=== PATIENT | male | born 1945 | race Caucasian/White ===

== ENCOUNTER 2017-01-30 09:27 | Emergency (ER) | payer MEDICARE ==
[2017-01-30] MEDS ORDERED: ASPIRIN 81 MG TABLET, CHEWABLE PO ONE (09:38)
[2017-01-30] MEDS ORDERED: ALBUTEROL SULFATE 0.083% NEB 2.5 MG/3 ML AMPUL NEB ONE (09:54)
--- NOTE | 2017-01-30 10:00 | ER Document Report ---
ED Respiratory Problem - General Stated Complaint: SHORTNESS OF BREATH,WEAKNESS Time seen by provider: 09:55 Mode of Arrival: Medic Information source: Patient Notes: 72-year-old male with history of COPD, diabetes, coronary artery disease was sent from [facility] with thoughts of 86%, shortness of breath, and wheezing. He went to [facility] this morning because he has been feeling tired and weak with diarrhea. No complaints of chest pain or abdominal pain. No vomiting. No fever. EKG in the room shows sinus bradycardia No PACs. He has inspiratory next 20 wheezing bilateral with very distant heart sounds which I can't even hear through the wheezing. Oxygen at 2 L nasal cannula. EKG read by Dr. Hunter. TRAVEL OUTSIDE OF THE [place] IN LAST 30 DAYS: No - Related Data Allergies/Adverse Reactions: Penicillins Allergy (Verified 01/15/16 17:13) Past Medical History - General Information source: Patient - Social History Smoking Status: Current Every Day Smoker Drug Abuse: None Lives with: Family Family History: Reviewed & Not Pertinent - Past Medical History Cardiac Medical History: Reports: Hx Congestive Heart Failure, Hx Coronary Artery Disease, Hx Hypercholesterolemia, Hx Hypertension Pulmonary Medical History: Reports: Hx Asthma, Hx COPD Endocrine Medical History: Reports: Hx Diabetes Mellitus Type 1 Musculoskeltal Medical History: Reports Hx Arthritis Skin Medical History: Reports Hx Cellulitis Past Surgical History: Reports: Hx Coronary Artery Bypass Graft Review of Systems - Review of Systems Constitutional: See HPI EENT: No symptoms reported Cardiovascular: No symptoms reported Respiratory: See HPI Gastrointestinal: See HPI Genitourinary: No symptoms reported Male Genitourinary: No symptoms reported Musculoskeletal: No symptoms reported Skin: No symptoms reported Hematologic/Lymphatic: No symptoms reported Neurological/Psychological: No symptoms reported Physical Exam - Vital signs Vitals: Resp Pulse Ox 20 98 01/30/17 09:56 01/30/17 09:56 Interpretation: Normal - Notes Notes: Obese - General General appearance: Alert, Other - chronically ill Notes: obese - HEENT Head: Normocephalic, Atraumatic Eyes: Normal Conjunctiva: Normal Pupils: PERRL Mucous membranes: Normal Pharynx: Normal Neck: Supple - Respiratory Respiratory status: No respiratory distress Chest status: Nontender Breath sounds: Normal Chest palpation: Normal - Cardiovascular Rhythm: Regular, Bradycardia - very distant, heard heart sounds after wheezing resolved Heart sounds: Normal auscultation Murmur: No - Abdominal Inspection: Normal Distension: No distension Bowel sounds: Normal Tenderness: Nontender. No: Tender Organomegaly: No organomegaly - Back Back: Normal, Nontender. No: CVA tenderness - Extremities General upper extremity: Normal inspection, Nontender, Normal color, Normal ROM , Normal temperature General lower extremity: Normal inspection, Nontender, Normal color, Normal ROM , Normal temperature, Normal weight bearing. No: Juanjo's sign - Neurological Neuro grossly intact: Yes Cognition: Normal Orientation: AAOx4 Melody Coma Scale Eye Opening: Spontaneous Melody Coma Scale Verbal: Oriented Melody Coma Scale Motor: Obeys Commands Melody Coma Scale Total: 15 Speech: Normal Motor strength normal: LUE, RUE, LLE, RLE Sensory: Normal - Psychological Associated symptoms: Normal affect, Normal mood - Skin Skin Temperature: Warm Skin Moisture: Dry Skin Color: Normal Skin irregularity: Rash - lower anterior legs chronic, not hot, light pink left anterior tibial skin Course - Re-evaluation Re-evalutation: 01/30/17 11:33 Patient feels better there is faint expiratory wheeze on the right only heart sounds are normal he is still in the sinus bradycardia. Took the oxygen off to see what his pulse ox does with the 2 L he was 98%. 01/30/17 14:[address] ly, if pulse ox ok ambulating can go home. He evaluated the EKG. few wheezes scattered. Sinus bradycardia was present 201501/30/17 14:10 Creatinine is 1.5 which is actually lower than the last time he was here. ABG oxygen 70 with a pulse ox of 93%, not retaining CO2. ambulating pulse ox 94% with no SOB. 01/30/17 14:22 - Vital Signs Vital signs: Temp Pulse Resp BP Pulse Ox 97.9 F 10 L 124/74 93 01/30/17 13:01 01/30/17 13:01 01/30/17 13:01 01/30/17 13:42 - Laboratory Result Diagrams: 01/30/17 11:15 01/30/17 11:15 Laboratory results interpreted by me: 01/30/17 01/30/17 01/30/17 11:15 11:15 11:15 RBC 3.89 L Hgb 12.0 L Hct 35.6 L RDW 14.5 H Plt Count 147 L ABG pO2 ABG O2 Saturation BUN 47 H Creatinine 1.50 H Est GFR ( Amer) 55 L Est GFR (Non-Af Amer) 46 L Glucose 127 H Calcium 8.1 L Magnesium 2.5 H 01/30/17 12:40 RBC Hgb Hct RDW Plt Count ABG pO2 69.2 L ABG O2 Saturation 93.6 L BUN Creatinine Est GFR ( Amer) Est GFR (Non-Af Amer) Glucose Calcium Magnesium - EKG Interpretation by Me EKG shows normal: Sinus rhythm Rate: Bradycardia Discharge - Discharge Clinical Impression: tobacco dependency, bronchitis, diabetes, Renal insufficiency COPD (chronic obstructive pulmonary disease) Qualifiers: COPD type: COPD with acute exacerbation Qualified Code(s): J44.1 - Chronic obstructive pulmonary disease with (acute) exacerbation Condition: Stable Disposition: HOME, SELF-CARE Instructions: Bronchitis With Bronchospasm (Wheezing) ([facility]), Steroid Medication , Inhaled Bronchodilators ([facility]) Additional Instructions: stop smoking take the steroids use the nebulizdr use the meter dose inhaler return to the ER if worse Please complete the patient satisfaction survey if you get one, and return it.. If you do not receive a survey, then you can go to the [facility] website, [email or web address] and place your comments about your very good care. Thank you very much. It was a pleasure being your medical provider today. Prescriptions: Albuterol Sulfate [Ventolin 0.083% Neb 2.5 mg/3 mL Ampul] 2.5 mg NEB Q3HP PRN # 25 vial PRN Reason: Albuterol Sulfate [Proair HFA Inhalation Aerosol 8.5 gm MDI] 2 puff IH Q3HP PRN #1 [email or web address] PRN Reason: Prednisone [Deltasone 10 mg Tablet] 10 mg PO ASDIR PRN #21 tablet PRN Reason:
[2017-01-30] MEDS ORDERED: PREDNISONE 20 MG TABLET PO ONE (11:35)
[2017-01-30 11:59] LABS: ABSOLUTE EOSINOPHILS # (AUTO) 0.1 10^3/uL (0.0-0.6); ABSOLUTE LYMPHOCYTES (AUTO) 2.3 10^3/uL (0.5-4.7); ABSOLUTE MONOCYTES (AUTO) 0.7 10^3/uL (0.1-1.4); ABSOLUTE NEUT (AUTO) 3.4 10^3/uL (1.7-8.2); BASOPHILS % (AUTO) 0.5 % (0-2); EOSINOPHILS % (AUTO) 0.9 % (0-6); HEMATOCRIT 35.6 % (37.9-51.0); HGB HCT DIFFERENCE 0.4; LYMPHOCYTES % (AUTO) 35.4 % (13-45); MEAN CORPUSCULAR HEMOGLOBIN 30.9 pg (27.0-33.4); MEAN CORPUSCULAR HGB CONC 33.7 g/dL (32.0-36.0); MEAN CORPUSCULAR VOLUME 92 fl (80-97); MONOCYTES % (AUTO) 10.8 % (3-13); RED BLOOD COUNT 3.89 10^6/uL (4.35-5.55); RED CELL DISTRIBUTION WIDTH 14.5 % (11.5-14.0); SEGMENTED NEUTROPHILS % (AUTO) 52.4 % (42-78); WHITE BLOOD COUNT 6.4 10^3/uL (4.0-10.5)
[2017-01-30 12:27] LABS: ALANINE AMINOTRANSFERASE 27 U/L (21-72); ALBUMIN 3.7 g/dL (3.5-5.0); ALKALINE PHOSPHATASE 70 U/L (38-126); ANION GAP 11 (5-19); ASPARTATE AMINO TRANSFERASE 30 U/L (17-59); BILIRUBIN,DIRECT 0.4 mg/dL (0.0-0.4); BILIRUBIN,TOTAL 0.5 mg/dL (0.2-1.3); BLOOD UREA NITROGEN 47 mg/dL (7-20); CALCIUM 8.1 mg/dL (8.4-10.2); CARBON DIOXIDE 26 mmol/L (22-30); CHLORIDE 104 mmol/L (98-107); CREATINE KINASE 115 U/L (55-170); GLUCOSE 127 mg/dL (75-110); POTASSIUM 4.9 mmol/L (3.6-5.0); SODIUM 141.2 mmol/L (137-145)
[2017-01-30 12:49] LABS: CREATINE KINASE MB 1.33 ng/mL (<4.55)
[2017-01-30 12:50] LABS: TROPONIN I < 0.012 ng/mL
[2017-01-30 13:31] LABS: ARTERIAL BLOOD O2 SATURATION 93.6 % (94-98)
[2017-01-30 15:11] VITALS: BP 145/51
--- NOTE | 2017-01-30 20:57 | EKG REPORT ---
SEVERITY:- ABNORMAL ECG - SINUS BRADYCARDIA NONSPECIFIC INTRAVENTRICULAR CONDUCTION DELAY LOW VOLTAGE IN FRONTAL LEADS : Confirmed by: Meghna Pandya 30-Jan-2017 20:57:03
== END 2017-01-30 15:11 | disposition home or self-care (01) ==
LOC: EDBD 09:27 → ER 09:27
DX: J44.1 Chronic obstructive pulmonary disease with (acute) exacerbation (principal); J40 Bronchitis, not specified as acute or chronic; N28.9 Disorder of kidney and ureter, unspecified; E11.9 Type 2 diabetes mellitus without complications; R06.02 Shortness of breath; R53.1 Weakness; I25.10 Atherosclerotic heart disease of native coronary artery without angina pectoris; R19.7 Diarrhea, unspecified; F17.200 Nicotine dependence, unspecified, uncomplicated
CPT/HCPCS: 93005; 94640; 99285; 36415; 82553; 82803; 82550; 83735; 85025; 80053; 84484; 83880; 71010; 93010; 36600; A9270 ×3; J7512

== ENCOUNTER 2018-07-24 11:33 | Emergency (ER) | payer MEDICARE ==
[2018-07-24 11:46] VITALS: BP 131/54
--- NOTE | 2018-07-24 13:01 | ER Document Report ---
HPI - HPI Patient complains to provider of: Right shoulder pain Onset: Other - Few days ago Pain Level: 5 Context: 73-year-old male reached down to lift up a heavy piece of metal to help repair roof few days ago. After he did this the pain inside his right shoulder joint became increasingly worse to where he he cannot abduct it today due to pain. Associated Symptoms: None Exacerbated by: Movement Relieved by: Denies Similar symptoms previously: Yes - Previous shoulder surgery many years ago Recently seen / treated by doctor: No - ROS ROS below otherwise negative: Yes Systems Reviewed and Negative: Yes All other systems reviewed and negative Past Medical History - General Information source: Patient - Social History Smoking Status: Unknown if Ever Smoked Lives with: Family Family History: Reviewed & Not Pertinent - Past Medical History Cardiac Medical History: Reports: Hx Congestive Heart Failure, Hx Coronary Artery Disease, Hx Hypercholesterolemia, Hx Hypertension Pulmonary Medical History: Reports: Hx Asthma, Hx COPD Endocrine Medical History: Reports: Hx Diabetes Mellitus Type 1, Hx Diabetes Mellitus Type 2 Musculoskeletal Medical History: Reports Hx Arthritis Skin Medical History: Reports Hx Cellulitis Past Surgical History: Reports: Hx Cardiac Catheterization, Hx Cardiac Surgery - bypass, Hx Coronary Artery Bypass Graft - Immunizations Hx Diphtheria, Pertussis, Tetanus Vaccination: Yes Vertical Provider Document - CONSTITUTIONAL Agree With Documented VS: Yes General Appearance: No Apparent Distress - INFECTION CONTROL TRAVEL OUTSIDE OF THE [place] IN LAST 30 DAYS: No - NECK Neck: Supple - MUSCULOSKELETAL/EXTREMETIES Musculoskeletal/Extremeties: Tender - rght deltoid and top of right shoulder, increased pain with abduction - NEURO Level of Consciousness: Awake, Alert Motor/Sensory: No Motor Deficit, No Sensory Deficit Notes: 2+ radial pulse - DERM Integumentary: No Rash Course - Re-evaluation Re-evalutation: 07/24/18 X-rays report is negative per radiologist - Vital Signs Vital signs: Temp Pulse Resp BP Pulse Ox 98.2 F 52 L 16 131/54 H 93 07/24/18 11:44 07/24/18 11:44 07/24/18 11:44 07/24/18 11:44 07/24/18 11:44 Procedures - Immobilization Right Arm Time completed: 13:05 Pre-Proc Neuro Vasc Exam: Normal Immobilizer type: Sling Performed by: PCT Post-Proc Neuro Vasc Exam: Normal Alignment checked and good: Yes Discharge - Discharge Clinical Impression: Right shoulder muscle strain Rotator cuff (capsule) sprain Qualifiers: Encounter type: initial encounter Laterality: right Qualified Code(s): S43.421A - Sprain of right rotator cuff capsule, initial encounter Condition: Good Disposition: HOME, SELF-CARE Instructions: Exercise Program for the Shoulder ([facility]), Shoulder Injury ([facility]), Sling as Treatment ([facility]) Additional Instructions: Gentle range of motion of the right shoulder so you do not get frozen shoulder Sling for comfort See the orthopedic doctor for follow-up for possible further imaging Prescriptions: Hydrocodone Bit/Acetaminophen [Hydrocodon-Acetaminophen 5-325] 1 each PO Q4HP PRN #15 tablet PRN Reason: Referrals: MONTANA WITT MD [ACTIVE STAFF] - Follow up as needed
--- NOTE | 2018-07-24 13:03 | RADIOLOGY REPORT (SQ) ---
EXAM DESCRIPTION: SHOULDER RIGHT 2 OR MORE VIEWS COMPLETED DATE/TIME: 07/24/2018 12:45 pm REASON FOR STUDY: injury COMPARISON: None. NUMBER OF VIEWS: Three views. TECHNIQUE: Internal rotation, external rotation, and Y view images acquired of the right shoulder. LIMITATIONS: None. FINDINGS: MINERALIZATION: Osteopenia. BONES: No acute fracture or dislocation. No worrisome bone lesions. JOINTS: No dislocation. VISUALIZED LUNGS AND RIBS: No pneumothorax. No rib fracture. SOFT TISSUES: No radiopaque foreign body. OTHER: No other significant finding. IMPRESSION: NO RADIOGRAPHIC EVIDENCE OF ACUTE INJURY. TECHNICAL DOCUMENTATION: JOB ID: [id number] [place]-72 2010 [employer]- All Rights Reserved Reading location - IP/workstation name: [email or web address]
== END 2018-07-24 13:36 | disposition home or self-care (01) ==
LOC: ER 11:33
DX: S46.911A Strain of unspecified muscle, fascia and tendon at shoulder and upper arm level, right arm, initial encounter (principal); S43.421A Sprain of right rotator cuff capsule, initial encounter; X50.0XXA Overexertion from strenuous movement or load, initial encounter; Y93.H3 Activity, building and construction; I25.10 Atherosclerotic heart disease of native coronary artery without angina pectoris; Z95.1 Presence of aortocoronary bypass graft; Z98.890 Other specified postprocedural states
CPT/HCPCS: 99283

== ENCOUNTER 2019-09-26 23:33 | Inpatient (IN) | payer MEDICARE ==
--- NOTE | 2019-09-27 | ER Document Report ---
ED Medical Screen (RME) - General Stated Complaint: FEVER,CHILLS Time Seen by Provider: 09/26/19 23:55 Mode of Arrival: Medic Information source: Patient Notes: 74-year-old male with history of CAD COPD asthma diabetes presents to the emergency department via EMS for fever chills all day low blood pressure. Discussed symptoms with patient he reports he has been sick his whole life. Is supposed to use home oxygen but does not. Is reported that when EMS picked him up his O2 sat was in the 80s. They placed oxygen on him brought his oxygen up to 97%. Septic work-up ordered I have greeted and performed a rapid initial assessment of this patient. A comprehensive ED assessment and evaluation of the patient, analysis of test results and completion of the medical decision making process will be conducted by additional ED providers. Dictation of this chart was performed using voice recognition software; therefore, there may be some unintended grammatical errors. TRAVEL OUTSIDE OF THE [place] IN LAST 30 DAYS: No - Related Data Allergies/Adverse Reactions: Penicillins Allergy (Verified 07/24/18 11:33) Past Medical History - Past Medical History Cardiac Medical History: Reports: Hx Congestive Heart Failure, Hx Coronary Artery Disease, Hx Hypercholesterolemia, Hx Hypertension Pulmonary Medical History: Reports: Hx Asthma, Hx COPD Endocrine Medical History: Reports: Hx Diabetes Mellitus Type 1, Hx Diabetes Mellitus Type 2 Renal/ Medical History: Denies: Hx Peritoneal Dialysis Musculoskeltal Medical History: Reports Hx Arthritis Skin Medical History: Reports Hx Cellulitis Past Surgical History: Reports: Hx Cardiac Catheterization, Hx Cardiac Surgery - bypass, Hx Coronary Artery Bypass Graft - Immunizations Hx Diphtheria, Pertussis, Tetanus Vaccination: Yes
[2019-09-27 00:19] LABS: VENOUS BLOOD HCO3 29.6 mmol/L (20-32); VENOUS BLOOD PCO2 52.4 mmHg (35-63); VENOUS BLOOD PH 7.37 (7.30-7.42)
[2019-09-27] MEDS ORDERED: NORMAL SALINE 1000 ML 1,000 ML IV ONE ×3 (00:21→12:30)
[2019-09-27 00:22] LABS: ABSOLUTE EOSINOPHILS # (AUTO) 0.1 10^3/uL (0.0-0.6); ABSOLUTE LYMPHOCYTES (AUTO) 1.3 10^3/uL (0.5-4.7); ABSOLUTE MONOCYTES (AUTO) 0.8 10^3/uL (0.1-1.4); ABSOLUTE NEUT (AUTO) 11.8 10^3/uL (1.7-8.2); BASOPHILS % (AUTO) 0.2 % (0-2); EOSINOPHILS % (AUTO) 0.5 % (0-6); HEMATOCRIT 47.2 % (37.9-51.0); HEMOGLOBIN 15.6 g/dL (13.5-17.0); LYMPHOCYTES % (AUTO) 9.2 % (13-45); MEAN CORPUSCULAR HEMOGLOBIN 29.7 pg (27.0-33.4); MEAN CORPUSCULAR HGB CONC 33.1 g/dL (32.0-36.0); MEAN CORPUSCULAR VOLUME 90 fl (80-97); MONOCYTES % (AUTO) 5.6 % (3-13); PLATELET COUNT 202 10^3/uL (150-450); RED BLOOD COUNT 5.25 10^6/uL (4.35-5.55); RED CELL DISTRIBUTION WIDTH 14.6 % (11.5-14.0); SEGMENTED NEUTROPHILS % (AUTO) 84.5 % (42-78); TOTAL CELLS COUNTED % (AUTO) 100 %
[2019-09-27] MEDS ORDERED: CEFEPIME 2 GM/D5W RTU 2 GM/50 ML RTUPB IV ONE (00:22)
[2019-09-27] MEDS ORDERED: VANCOMYCIN HCL INJ 1000 MG VIAL IV ONE (00:23)
--- NOTE | 2019-09-27 00:29 | ER Document Report ---
ED Fever - General Chief Complaint: Fever Stated Complaint: FEVER,CHILLS Time Seen by Provider: 09/26/19 23:55 Mode of Arrival: Medic Notes: Patient is a 74-year-old male that comes emergency department for chief complai nt of feeling bad and low blood pressure. He was found to have a fever by EMS at 101.1, initial oxygen saturation was 84% on room air, initial blood pressure was 153/74. He was given 925 mg of Tylenol and placed on oxygen. He is supposed to be wearing oxygen at home, has a history of COPD and asthma, does not like wearing the oxygen at home. He also has a history of diabetes, CAD, CHF. He states other than feeling weak he does not have any symptoms including headache, sore throat, chest pain, abdominal pain, leg pain, difficulty breathing, cough. He states his influenza is up-to-date. TRAVEL OUTSIDE OF THE [place] IN LAST 30 DAYS: No - Related Data Allergies/Adverse Reactions: Penicillins Allergy (Verified 07/24/18 11:33) Past Medical History - General Information source: Patient - Social History Smoking Status: Former Smoker Frequency of alcohol use: None Drug Abuse: None Lives with: Family Family History: Reviewed & Not Pertinent Patient has suicidal ideation: No Patient has homicidal ideation: No - Past Medical History Cardiac Medical History: Reports: Hx Congestive Heart Failure, Hx Coronary Artery Disease, Hx Hypercholesterolemia, Hx Hypertension Pulmonary Medical History: Reports: Hx Asthma, Hx COPD Endocrine Medical History: Reports: Hx Diabetes Mellitus Type 2 Renal/ Medical History: Denies: Hx Peritoneal Dialysis Musculoskeletal Medical History: Reports Hx Arthritis Skin Medical History: Reports Hx Cellulitis Past Surgical History: Reports: Hx Cardiac Catheterization, Hx Cardiac Surgery - bypass, Hx Coronary Artery Bypass Graft - Immunizations Hx Diphtheria, Pertussis, Tetanus Vaccination: Yes Review of Systems - Review of Systems Constitutional: See HPI EENT: No symptoms reported Cardiovascular: See HPI Respiratory: See HPI Gastrointestinal: No symptoms reported Genitourinary: No symptoms reported Male Genitourinary: No symptoms reported Musculoskeletal: No symptoms reported Skin: No symptoms reported Hematologic/Lymphatic: No symptoms reported Neurological/Psychological: No symptoms reported Physical Exam - Vital signs Vitals: Resp 09/26/19 23:38 - Notes Notes: GENERAL: Alert, conversational, does not appear to be in distress HEAD: Normocephalic, atraumatic. EYES: Pupils equal, round, and reactive to light. Extraocular movements intact. ENT: Oral mucosa very dry, tongue midline. Oropharynx unremarkable. Airway patent. N NECK: Full range of motion. Supple. Trachea midline. LUNGS: Decreased lung sounds and scattered coarse breath sounds but no labored breathing or tachypnea HEART: Regular rate with extrasystoles, no obvious murmur ABDOMEN: Soft, non-tender. Non-distended. Bowel sounds present in all 4 quadrants. EXTREMITIES: Moves all 4 extremities spontaneously. No edema, normal radial and dorsalis pedis pulses bilaterally. No cyanosis. BACK: no cervical, thoracic, lumbar midline tenderness. No saddle anesthesia, normal distal neurovascular exam. Moves all extremities in full range of motion. NEUROLOGICAL: Alert and oriented x3. Normal speech. Cranial nerves II through XII grossly intact. PSYCH: Normal affect, normal mood. SKIN: Warm, dry, normal turgor. No rashes or lesions noted. Skin abrasions over the left lower leg with some chronic skin changes bilaterally over the lower extremities Course - Re-evaluation Re-evalutation: 09/27/19 00:25 Patient is alert, flushed, nontoxic in appearance, however he is borderline hypoxic on 2 L nasal cannula and he is hypotensive on my evaluation. Pressure cycled and is 82 systolic, this was confirmed with 84 systolic on many of blood pressure. Patient has a 20-gauge in the right forearm and a 16-gauge in the left AC. Giving initial IV fluid bolus, I do not hear rales and he does not have pitting edema but he does have a history of CHF. Broad-spectrum covering with vancomycin and cefepime because of his history of diabetes and his penicillin allergy. Patient will be very closely monitored and reevaluated because he is critically ill at this time. On reevaluation patient's blood pressure is in the mid 90s, this is trending in the right direction. We will continue to monitor. CBC shows leukocytosis of 14,000, lactic acid is elevated at greater than 3.5, chemistry is nonspecific, troponin is indeterminate. Urinalysis unremarkable, chest x-ray indicating bilateral lower lobe pneumonia which is consistent with patient's fever, hypotension, hypoxia. Patient is tolerating nasal cannula well, he is alert and conversational on reevaluation, his blood pressure did improve to 100 systolic with IV fluid bolus, continuing IV fluids. Discussed with Dr. Antonio. Patient is telling me he is feels so much better he wants to go home, I stressed the importance of him staying because I believe he is septic with pneumonia. Patient does state agreement with this. Discussed with Dr. Loredo, note keeper, patient accepted to the ICU. She requests another IV fluid bolus at this time, this is hanging. - Vital Signs Vital signs: Temp Pulse Resp BP Pulse Ox 100.2 F 64 20 100/53 L 97 09/27/19 04:33 09/27/19 04:36 09/27/19 04:36 09/27/19 04:33 09/27/19 04:36 - Laboratory Result Diagrams: 09/27/19 00:02 09/27/19 00:02 Laboratory results interpreted by me: 09/27/19 09/27/19 09/27/19 00:02 00:02 00:02 WBC 14.0 H RDW 14.6 H Lymph % (Auto) 9.2 L Absolute Neuts (auto) 11.8 H Seg Neutrophils % 84.5 H PT BUN 42 H Creatinine 1.94 H Est GFR ( Amer) 41 L Est GFR (MDRD) Non-Af 34 L Glucose 121 H POC Glucose Lactic Acid (Sepsis) 3.4 H Urine Protein Urine Blood 09/27/19 09/27/19 09/27/19 00:02 00:30 00:30 WBC RDW Lymph % (Auto) Absolute Neuts (auto) Seg Neutrophils % PT 15.5 H BUN Creatinine Est GFR ( Amer) Est GFR (MDRD) Non-Af Glucose POC Glucose 147 H Lactic Acid (Sepsis) Urine Protein 100 H Urine Blood SMALL H Critical Care Note - Critical Care Note Total time excluding time spent on procedures (mins): 40 - septic shock, pneumonia Comments: Please allow 40 minutes of critical care time for evaluation and management of patient with septic shock and pneumonia. Patient with complication of hypotension requiring fluid resuscitation, treatment with broad-spectrum antibiotics, multiple re-evaluations performed, time spent discussing with patient and discussing with note keeper with subsequent ICU admission. Discharge - Discharge Clinical Impression: Septic shock, Elevated lactic acid level Pneumonia Qualifiers: Pneumonia type: due to unspecified organism Laterality: bilateral Lung location: lower lobe of lung Qualified Code(s): J18.9 - Pneumonia, unspecified organism Fever Qualifiers: Fever type: unspecified Qualified Code(s): R50.9 - Fever, unspecified Condition: Serious Disposition: ADMITTED INPATIENT Admitting Provider: Facundo (Clinical Mental Health Counselor) Unit Admitted: ICU
[2019-09-27 00:31] LABS: ALBUMIN 4.2 g/dL (3.5-5.0); ALKALINE PHOSPHATASE 82 U/L (38-126); ANION GAP 12 (5-19); ASPARTATE AMINO TRANSFERASE 25 U/L (17-59); BILIRUBIN,DIRECT 0.1 mg/dL (0.0-0.4); BILIRUBIN,TOTAL 0.5 mg/dL (0.2-1.3); BLOOD UREA NITROGEN 42 mg/dL (7-20); CALCIUM 9.1 mg/dL (8.4-10.2); CARBON DIOXIDE 29 mmol/L (22-30); CHLORIDE 102 mmol/L (98-107); GLUCOSE 121 mg/dL (75-110); TOTAL PROTEIN 7.6 g/dL (6.3-8.2)
[2019-09-27 01:04] LABS: APPEARANCE,URINE CLEAR; BILIRUBIN,URINE NEGATIVE (NEGATIVE); COLOR,URINE YELLOW; GLUCOSE, URINE NEGATIVE (NEGATIVE); KETONES,URINE NEGATIVE (NEGATIVE); LEUKOCYTE ESTERASE,URINE NEGATIVE (NEGATIVE); NITRITE,URINE NEGATIVE (NEGATIVE); PROTEIN,URINE 100 mg/dL (NEGATIVE); URINE SPECIFIC GRAVITY 1.014; UROBILINOGEN,URINE NEGATIVE mg/dL (<2.0)
[2019-09-27 01:12] LABS: INTERNATIONAL RATION (INR) 1.22; PROTHROMBIN TIME 15.5 SEC (11.4-15.4)
--- NOTE | 2019-09-27 01:12 | RADIOLOGY REPORT (SQ) ---
XR CHEST 1 VIEW EXAM DATE: 09/26/2019 11:45 PM DATABASE DESIGNER HISTORY: Fever and shortness of breath. COMPARISON: 01/30/2017 FINDINGS: The cardiac silhouette is enlarged with prior CABG noted. No pulmonary vascular congestion is seen. There are patchy opacities at the lung bases greater on the left. No large pleural effusions or pneumothorax. The bony thorax is intact. IMPRESSION: Patchy opacities at the lung bases which may represent infection or edema.
[2019-09-27 01:24] LABS: A TYPE INFLUENZA AG NEGATIVE (NEGATIVE)
[2019-09-27 01:25] LABS: B INFLUENZA AG NEGATIVE (NEGATIVE)
[2019-09-27] MEDS ORDERED: ACETAMINOPHEN 325 MG TABLET PO PRN (01:41)
[2019-09-27] MEDS ORDERED: VANCOMYCIN HCL 0 MG in DEXTROSE 5%-WATER 250 ML IV NR (01:45)
[2019-09-27] MEDS ORDERED: DEXTROSE 40% GEL 15 GM TUBE PO PRN ×2 (01:50)
[2019-09-27] MEDS ORDERED: DEXTROSE 50%-WATER 25 GM/50 ML DISP.SYRIN IV PRN ×2 (01:50)
[2019-09-27] MEDS ORDERED: GLUCAGON,HUMAN RECOMB 1 MG INJ IM PRN (01:50)
[2019-09-27] MEDS ORDERED: RINGERS SOLUTION,LACTATED 1,000 ML IV ONE ×2 (02:07→05:50)
--- NOTE | 2019-09-27 02:27 | CRITICAL CARE ADMISSION REPORT ---
HPI Date:: 09/27/19 Time:: 02:11 Reason for ICU Reason:: septic shock, PNA, acute hypoxic respiratory failure HPI: Pt is a 74 yo man with COPD who is supposed to be on home O2, HTN, CHF, CAD, DM, CKD, CABG who presented to the ED via EMS. Pt was c/o chills at home. Per EMS, pt had an O2 sat in the 80s on RA. In the ED he was found to be hypotensive with an SBP in the 80s. CXR show bibasilar patchy infiltrates. Pt was given IVF and given vanc and cefepime. Upon my assessment of the pt in the ED, he is awake, alert, cooperative. His SBP is in the 100s and is on on nasal cannula O2. He states the only symptom he had was of chills. He denied and fever, chest pain, S OA, bladder or bowel dysfunction, MYERS, visual changes. - Diagnosis/Plan (1) Septic shock Is this a current diagnosis for this admission?: Yes (2) Pneumonia Qualifiers: Pneumonia type: due to unspecified organism Laterality: bilateral Lung location: lower lobe of lung Qualified Code(s): J18.9 - Pneumonia, unspecified organism Is this a current diagnosis for this admission?: Yes (3) Acute and chronic respiratory failure with hypoxia Is this a current diagnosis for this admission?: Yes (4) DEDRICK (acute kidney injury) Is this a current diagnosis for this admission?: Yes (5) COPD (chronic obstructive pulmonary disease) Is this a current diagnosis for this admission?: Yes (6) Diabetes Qualifiers: Diabetes mellitus type: type 2 Past Medical History Cardiac Medical History: Reports: Congestive Heart Failure, Coronary Artery Disease, Hyperlipidema, Hypertension Pulmonary Medical History: Reports: Asthma, Chronic Obstructive Pulmonary Disease (COPD) Endocrine Medical History: Reports: Diabetes Mellitus Type 1, Diabetes Mellitus Type 2 Musculoskeltal Medical History: Reports: Arthritis Past Surgical History Past Surgical History: Reports: Cardiac Catheterization, Coronary Artery Bypass Graft Social/Family History - Social History Smoking Status: Former Smoker - Medication/Allergies Home Medications: Polyethylene Glycol 3350 [Miralax] 119 gm PO ONCE PRN #7 powder 01/15/16 Albuterol Sulfate [Proair HFA Inhalation Aerosol 8.5 gm MDI] 2 puff IH Q3HP PRN #1 hfa.aer.ad 01/30/17 Albuterol Sulfate [Ventolin 0.083% Neb 2.5 mg/3 mL Ampul] 2.5 mg NEB Q3HP PRN #25 vial 01/30/17 Prednisone [Deltasone 10 mg Tablet] 10 mg PO ASDIR PRN #21 tablet 01/30/17 Hydrocodone Bit/Acetaminophen [Hydrocodon-Acetaminophen 5-325] 1 each PO Q4HP PRN #15 tablet 07/24/18 Allergies/Adverse Reactions: Penicillins Allergy (Verified 07/24/18 11:33) Review of Systems Review of Systems: per HPI Physical Exam Vital Signs: Temp Pulse Resp BP Pulse Ox 99.8 F 18 107/71 95 09/27/19 01:59 09/27/19 02:01 09/27/19 02:01 09/27/19 02:01 Intake & Output 09/25/19 09/26/19 09/27/19 06:59 06:59 06:59 Intake Total 1050 Output Total 200 Balance 850 Weight 131.542 kg Weight/Height Weight 131.542 kg Height 6 ft 3 in General appearance: PRESENT: no acute distress, morbidly obese, well-developed, well-nourished Head exam: PRESENT: atraumatic, normocephalic Respiratory exam: PRESENT: unlabored, wheezes Cardiovascular exam: PRESENT: RRR, other - no mrg GI/Abdominal exam: PRESENT: soft Extremities exam: PRESENT: +1 edema Neurological exam: PRESENT: alert, awake Skin exam: PRESENT: other - venous stasis changes Laboratory/Radiographs Laboratory Results: 09/27/19 00:02 09/27/19 00:02 09/27/19 09/27/19 09/27/19 00:02 00:02 00:02 WBC 14.0 H RBC 5.25 Hgb 15.6 Hct 47.2 MCV 90 MCH 29.7 MCHC 33.1 RDW 14.6 H Plt Count 202 Seg Neutrophils % 84.5 H VBG pH 7.37 VBG pCO2 52.4 VBG HCO3 29.6 VBG Base Excess 3.0 Sodium 142.9 Potassium 4.0 Chloride 102 Carbon Dioxide 29 Anion Gap 12 BUN 42 H Creatinine 1.94 H Est GFR ( Amer) 41 L Glucose 121 H Calcium 9.1 Total Bilirubin 0.5 AST 25 Alkaline Phosphatase 82 Total Protein 7.6 Albumin 4.2 Urine Color Urine Appearance Urine pH Ur Specific [place] Urine Protein Urine Glucose (UA) Urine Ketones Urine Blood Urine Nitrite Ur Leukocyte Esterase Urine WBC (Auto) Urine RBC (Auto) 09/27/19 00:30 WBC RBC Hgb Hct MCV MCH MCHC RDW Plt Count Seg Neutrophils % VBG pH VBG pCO2 VBG HCO3 VBG Base Excess Sodium Potassium Chloride Carbon Dioxide Anion Gap BUN Creatinine Est GFR ( Amer) Glucose Calcium Total Bilirubin AST Alkaline Phosphatase Total Protein Albumin Urine Color YELLOW Urine Appearance CLEAR Urine pH 5.0 Ur Specific [place] 1.014 Urine Protein 100 H Urine Glucose (UA) NEGATIVE Urine Ketones NEGATIVE Urine Blood SMALL H Urine Nitrite NEGATIVE Ur Leukocyte Esterase NEGATIVE Urine WBC (Auto) 1 Urine RBC (Auto) 0 09/27/19 00:05 Troponin I 0.021 Impressions: Chest X-Ray 09/26/19 23:45 IMPRESSION: Patchy opacities at the lung bases which may represent infection or edema. Critical Time Critical Time (minutes): 40 -: The care of a critically ill patient is dynamic. This note represents a static moment in the admission process. orders and treatments may be given simulataneously and urgentl, and time is not manufacturing sales representative of the treatment process. This patient requires Critical Care secondary to life threating organ or limb dysfunction. Without the need for Critical Care services, the patient is at risk for increasid mortality and morbidity. Provider Note Provider Note: Assessment: Critically ill 74 yo man with acute hypoxic respiratory failure, PNA, septic shock, DM, CAD, COPD, DEDRICK Plan: 1. Respiratory: acute on chronic hypoxic respiratory failure. Continue supplemental oxygen per nasal cannula. Pt is supposed to be on home O2 for his COPD but does not wear it. ABG ordered 2. Pulmonary: PNA, COPD. Continue vanc and cefepime. Add azithromycin. Start steroids and duonebs. CT of chest without contrast 3. CV: hypotension due to septic shock. Will another bolus of IVF. Start mIVF. CAD, h/o CABG, h/o CHF. Order echo. Resume home plavix. Hold home BP meds 4. ID: septic shock, PNA. Vanc, cefepime, azithromycin. Cultures pending, flu negative 5. Renal: DEDRICK, CKD. Cr has increased to 1.92. Will give IVF. Hold home lasix. I nsert bobby. Renal US. Renally dose meds. 6. Endocrine: DM. Accuchecks, SSI, continue home dose of 70/30 55 units BID. Steroids for COPD. 7. Nutrition: cardiac diet 8. Prophylaxis: sq heparin, scds Critical care time= 40 min, excluding procedures
[2019-09-27 03:00] LABS: ARTERIAL BLOOD BASE EXCESS 0.2 mmol/L; ARTERIAL BLOOD HCO3 25.4 mmol/L (20-24); ARTERIAL BLOOD O2 SATURATION 94.5 % (94-98); ARTERIAL BLOOD PCO2 43.2 mmHg (35-45); ARTERIAL BLOOD PH 7.39 (7.35-7.45); ARTERIAL BLOOD PO2 72.7 mmHg (80-100); ARTERIAL BLOOD TOTAL CO2 26.8 mmol/L (23-27)
[2019-09-27 03:03] LABS: ARTERIAL BLOOD FIO2 2L
[2019-09-27] MEDS: RINGERS SOLUTION,LACTATED 1,000 ML IV PRN ×3 (04:04→22:41)
[2019-09-27] MEDS: METHYLPREDNISOLONE INJ 125 MG/2 ML SDV IV SCH ×4 (04:05→21:39)
[2019-09-27] MEDS: IPRATROPIUM/ALBUTEROL 0.5-2.5 MG/3 ML AMPUL NEB SCH ×5 (04:35→19:47)
[2019-09-27] MEDS: HEPARIN SOD (PORCINE) 5,000 UNIT/ML 1 ML VIAL SUBCUT SCH ×3 (05:58→21:39)
--- NOTE | 2019-09-27 06:48 | EKG REPORT ---
SEVERITY:- ABNORMAL ECG - SINUS RHYTHM WITH PACS LAD, CONSIDER LEFT ANTERIOR FASCICULAR BLOCK LOW VOLTAGE IN FRONTAL LEADS NONSPECIFIC : Confirmed by: Gilberto Olvera MD 27-Sep-2019 06:48:21
--- NOTE | 2019-09-27 08:31 | RADIOLOGY REPORT (SQ) ---
EXAM DESCRIPTION: U/S RETROPERITON LTD COMPLETED DATE/TIME: 09/27/2019 5:14 am REASON FOR STUDY: DEDRICK COMPARISON: None. TECHNIQUE: Dynamic and static grayscale images acquired of the kidneys and bladder and recorded on P ACS. Additional selected color Doppler and spectral images recorded. LIMITATIONS: None. FINDINGS: RIGHT KIDNEY: Normal size. Normal echogenicity. No solid or suspicious masses. No h ydronephrosis. No calcifications. LEFT KIDNEY: Normal size. Normal echogenicity. No solid or suspicious masses. No hydronephrosi s. No calcifications. BLADDER: No masses. OTHER FINDINGS: No other significant finding. IMPRESSION: NORMAL RENAL AND BLADDER ULTRASOUND. TECHNICAL DOCUMENTATION: JOB ID: [id number] [employer]- All Rights Reserved Reading location - IP/workstation name: [email or web address]
--- NOTE | 2019-09-27 08:41 | RADIOLOGY REPORT (SQ) ---
EXAM DESCRIPTION: CT CHEST WITHOUT COMPLETED DATE/TIME: 09/27/2019 3:02 am REASON FOR STUDY: PNA COMPARISON: AP chest 09/27/2019 TECHNIQUE: CT scan performed of the chest without intravenous contrast. Images reviewed with lung, soft tissue and bone windows. Reconstructed coronal and sagittal MPR images reviewed. All images st ored on PACS. All CT scanners at this facility use dose modulation, iterative reconstruction, and/or weight based d osing when appropriate to reduce radiation dose to as low as reasonably achievable (ALARA). [facility]: Dose Right [facility]: CareDose [facility]: Dose Right [facility]: Teradose 4D [facility]: Smart BeSmart RADIATION DOSE: CT Rad equipment meets quality standard of care and radiation dose reduction techniq ues were employed. CTDIvol: 27.2 mGy. DLP: 1228 mGy-cm. mGy. LIMITATIONS: No technical limitations. FINDINGS: LUNGS AND PLEURA: There are thickened interlobular septa around the periphery of both lung s, basilar predominant, with multiple enlarged airspaces are in the periphery of both lungs and honey comb pattern, likely indicating pulmonary fibrosis. An 8 x 10 mm smooth ovoid nodule is present along the right minor fissure on axial image 29 and coron al image 96, probably benign postinflammatory change. Follow-up as per Fleischner criteria. A 5 mm noncalcified smooth round subpleural nodule is present in the right lower lobe on axial image 25, likely a noncalcified granuloma. No pleural effusion. No pneumothorax. No focal infiltrates. HILAR AND MEDIASTINAL STRUCTURES: There are multiple small mediastinal lymph nodes throughout the pre vascular, of paratracheal, precarinal, hilar, and subcarinal regions. The largest of these measures 1.7 by 1.5 in the precarinal region on axial image 21. Remainder of these lymph nodes are less than 1 cm short axis. HEART AND VASCULAR STRUCTURES: No aneurysm. No pericardial effusion. Post sternotomy for CABG. Jose cified aortic valve. UPPER ABDOMEN: Post cholecystectomy. Heavy atherosclerotic calcification and stenosis along the galilea ac and SMA and bilateral renal arteries. THYROID AND OTHER SOFT TISSUES: No masses. No adenopathy. BONES: No significant finding. HARDWARE: None in the chest. OTHER: No other significant findings. IMPRESSION: No findings worrisome for dense pneumonia. Pulmonary fibrosis Probable postinflammatory nodules in the right lung CABG, known coronary atherosclerosis. Atherosclerotic change upper abdominal visceral arteries. COMMENT: FLEISCHNER CRITERIA FOR FOLLOW-UP OF PULMONARY NODULES Incidentally detected new nodules in persons 35 or older. HIGH RISK: History of smoking or other known risk factors. 6-8mm single solid nodule: LOW RISK: CT 6-12 mo; then consider CT 18-24 mo. HIGH RISK: CT 6-12 mo; th en CT 18-24 mo. TECHNICAL DOCUMENTATION: JOB ID: [id number] Quality ID # [id number]: Final reports with documentation of one or more dose reduction techniques (e.g., Au tomated exposure control, adjustment of the mA and/or kV according to patient size, use of iterative reconstruction technique) 2010 [employer]- All Rights Reserved Reading location - IP/workstation name: [email or web address]
[2019-09-27] MEDS: INSULIN REG, HUMAN 100 UNIT/ML 3 ML VIAL (PYX) SUBCUT SCH ×4 (08:52→21:38)
[2019-09-27] MEDS ORDERED: CLOPIDOGREL BISULFATE 75 MG TABLET PO SCH (10:00)
[2019-09-27] MEDS ORDERED: DOCUSATE SODIUM 100 MG CAPSULE PO SCH (10:00)
[2019-09-27] MEDS: AZITHROMYCIN 500 MG in DEXTROSE 5%-WATER 250 ML IV SCH (11:00)
[2019-09-27] MEDS: HUM INSULIN NPH/REG INSULIN HM 100 UNIT/1 ML 3 ML SUBCUT SCH ×2 (11:37→17:03)
--- NOTE | 2019-09-27 12:53 | PDOC CRITICAL CARE PROG REPORT ---
General Date:: 09/27/19 ICU Day:: 1 Hospital Day:: 1 Events in the past 12 to 24 Hours:: BP better, respiratory status better. But BP still on the low side. IPF has been suggested by CT scan. Review of systems relevant to events:: Respiratory, constitutional, cardiac Reason for ICU Addmission:: septic shock, PNA, acute hypoxic respiratory failure - Medications: Medications reviewed and adjusted accordingly: Yes Vasopressors:: None Sedation:: No Physical Exam Vital Signs: Temp Pulse Resp BP Pulse Ox 96.9 F L 66 18 114/54 L 96 09/27/19 12:00 09/27/19 12:34 09/27/19 12:34 09/27/19 12:00 09/27/19 12:34 Intake & Output 09/26/19 09/27/19 09/28/19 06:59 06:59 06:59 Intake Total 2089 257 Output Total 700 400 Balance 1389 -143 Weight 129.5 kg Weight/Height Weight 129.5 kg Height 6 ft 3 in General appearance: PRESENT: no acute distress, well-developed, well-nourished Head exam: PRESENT: atraumatic, normocephalic Eye exam: PRESENT: conjunctiva pink, EOMI, PERRLA. ABSENT: scleral icterus Ear exam: PRESENT: normal external ear exam Mouth exam: PRESENT: dry mucosa, tongue midline Respiratory exam: PRESENT: clear to auscultation ricki, crackles, decreased breath sounds, other - Crackles at R base.. ABSENT: rales, rhonchi, wheezes Cardiovascular exam: PRESENT: RRR. ABSENT: diastolic murmur, rubs, systolic murmur Vascular exam: PRESENT: normal capillary refill GI/Abdominal exam: PRESENT: normal bowel sounds, soft. ABSENT: distended, guarding, mass, organolmegaly, rebound, tenderness Rectal exam: PRESENT: deferred Extremities exam: PRESENT: full ROM. ABSENT: calf tenderness, clubbing, pedal edema Musculoskeletal exam: PRESENT: other - Stiff Neurological exam: PRESENT: alert, awake, oriented to person, oriented to place, oriented to time, oriented to situation, CN II-XII grossly intact. ABSENT: motor sensory deficit Skin exam: PRESENT: dry, intact, warm. ABSENT: cyanosis, rash Laboratory/Radiographs Laboratory Results: 09/27/19 00:02 09/27/19 00:02 09/27/19 09/27/19 09/27/19 00:02 00:02 00:02 WBC 14.0 H RBC 5.25 Hgb 15.6 Hct 47.2 MCV 90 MCH 29.7 MCHC 33.1 RDW 14.6 H Plt Count 202 Seg Neutrophils % 84.5 H Carbonic Acid HCO3/H2CO3 Ratio ABG pH ABG pCO2 ABG pO2 ABG HCO3 ABG O2 Saturation ABG Base Excess VBG pH 7.37 VBG pCO2 52.4 VBG HCO3 29.6 VBG Base Excess 3.0 FiO2 Sodium 142.9 Potassium 4.0 Chloride 102 Carbon Dioxide 29 Anion Gap 12 BUN 42 H Creatinine 1.94 H Est GFR ( Amer) 41 L Glucose 121 H Calcium 9.1 Total Bilirubin 0.5 AST 25 Alkaline Phosphatase 82 Total Protein 7.6 Albumin 4.2 Urine Color Urine Appearance Urine pH Ur Specific [place] Urine Protein Urine Glucose (UA) Urine Ketones Urine Blood Urine Nitrite Ur Leukocyte Esterase Urine WBC (Auto) Urine RBC (Auto) 09/27/19 09/27/19 00:30 02:50 WBC RBC Hgb Hct MCV MCH MCHC RDW Plt Count Seg Neutrophils % Carbonic Acid 1.30 HCO3/H2CO3 Ratio 19:1 ABG pH 7.39 ABG pCO2 43.2 ABG pO2 72.7 L ABG HCO3 25.4 H ABG O2 Saturation 94.5 ABG Base Excess 0.2 VBG pH VBG pCO2 VBG HCO3 VBG Base Excess FiO2 2L Sodium Potassium Chloride Carbon Dioxide Anion Gap BUN Creatinine Est GFR ( Amer) Glucose Calcium Total Bilirubin AST Alkaline Phosphatase Total Protein Albumin Urine Color YELLOW Urine Appearance CLEAR Urine pH 5.0 Ur Specific [place] 1.014 Urine Protein 100 H Urine Glucose (UA) NEGATIVE Urine Ketones NEGATIVE Urine Blood SMALL H Urine Nitrite NEGATIVE Ur Leukocyte Esterase NEGATIVE Urine WBC (Auto) 1 Urine RBC (Auto) 0 09/27/19 09/27/19 00:05 06:07 Troponin I 0.021 0.099 Impressions: Chest X-Ray 09/26/19 23:45 IMPRESSION: Patchy opacities at the lung bases which may represent infection or edema. Chest CT 09/27/19 00:00 IMPRESSION: No findings worrisome for dense pneumonia. Pulmonary fibrosis Probable postinflammatory nodules in the right lung CABG, known coronary atherosclerosis. Atherosclerotic change upper abdominal visceral arteries. Renal Ultrasound 09/27/19 00:00 IMPRESSION: NORMAL RENAL AND BLADDER ULTRASOUND. All labs, radiographs, diagnostic studies and EKGs were personally reviewed: Yes In addition, reports of radiographic and diagnostic studies were read: Yes Assessment and Plan - Diagnosis (1) DEDRICK (acute kidney injury) Is this a current diagnosis for this admission?: Yes Plan: Cr 1.94, baseline 1.5. Expect return to normal by tomorrow (2) COPD (chronic obstructive pulmonary disease) Is this a current diagnosis for this admission?: Yes Plan: Continue steroids. No wheezing or prolonged expiratory phase. (3) Diabetes Qualifiers: Diabetes mellitus type: type 2 Diabetes mellitus jail insulin use: without assistant terminal manager use Diabetes mellitus complication status: with skin complications Diabetes mellitus complication detail: with other skin ulcer Qualified Code(s): E11.622 - Type 2 diabetes mellitus with other skin ulcer Is this a current diagnosis for this admission?: Yes Plan: With illness and need for steroids, expect glucose to climb. (4) Pneumonia Qualifiers: Pneumonia type: due to unspecified organism Laterality: bilateral Lung location: lower lobe of lung Qualified Code(s): J18.9 - Pneumonia, unspecified organism Is this a current diagnosis for this admission?: Yes Plan: Continue antibiotics. (5) Septic shock Is this a current diagnosis for this admission?: Yes Plan: Resolved. Plan Summary: In addition to above, have a hand drawer in weigh in on diagnosis of IPF. Critical Time Critical Time (minutes): 35 Level of Care: ICU Anticipated discharge: Home Within: within 72 hours -: 1. The care of a critical patient is a dynamic process. This note is a hotel services sales representative synopsis but static in nature. The timeframe for treatments given in order is not necessary the actual time these treatments may have been done. 2. This patient requires critical care secondary to ongoing requirements for t herapy not offered or safe outside the critical care environment. Transfer to a lower level of care with altered life or limb morbidity and mortality. 3. Multidisciplinary rounds completed. 4. ABCDE bundle addressed.
[2019-09-27] MEDS: SIMVASTATIN 40 MG TABLET PO SCH (21:39)
[2019-09-27] MEDS ORDERED: VANCOMYCIN HCL 2,000 MG in DEXTROSE 5%-WATER 500 ML IV SCH (22:00)
--- NOTE | 2019-09-27 22:33 | XCELERA REPORT ---
[address] [address] Transthoracic Echocardiogram Report Name: ROBB KUNZ Age: 74 yrs Gender: Male : 1945 Patient Status: Inpatient Patient Location: ICU^605^A Study Date: 09/27/2019 10:42 AM Weight: 290 lb Procedure: A two-dimensional transthoracic echocardiogram with color flow and Doppler was performed. The study was technically difficult with many images being suboptimal in quality. Reason For Study: CHF History: CHF. Ordering Physician: MADDY MITCHELL Performed By: Charmaine Camargo Interpretation Summary The left ventricle is normal in size. There is normal left ventricular wall thickness. LV EF is 65% Left ventricular systolic function is normal. Doppler measurements suggest impaired left ventricular relaxation, which is associated with grade I/IV or mild diastolic dysfunction The left ventricular wall motion is normal. There is no thrombus. Probably no ASD ,VSD . or PFO seen. The right ventricle is not well visualized secondary to technical limitations The right atrium is normal. Right atrium not well visualized secondary to technical limitations The left atrium is mildly dilated. There is mild mitral annular calcification. There is no evidence of mitral valve prolapse. There is no vegetation seen on the mitral valve. There is no mitral valve stenosis. There is no mitral regurgitation noted. There is no aortic valvular vegetation. There is aortic sclerosis without aortic stenosis. There is no tricuspid stenosis. There is a trace amount of tricuspid regurgitation There is no pulmonic valvular stenosis. There is no pulmonic valvular regurgitation. The aortic root is not well visualized but is probably normal size. There is no pericardial effusion. MMode/2D Measurements & Calculations IVSd: 1.1 cm LVIDd: 5.6 cm FS: 40.7 % Ao root diam: 3.3 cm LVIDs: 3.3 cm EDV(Teich): 153.7 ml LVPWd: 1.5 cm ESV(Teich): 44.9 ml Ao root area: 8.8 cm2 EF(Teich): 70.8 % Doppler Measurements & Calculations MV E max sean: MV dec slope: Ao V2 max: LV V1 max P.3 cm/sec 101.8 cm/sec 3.2 mmHg MV A max sean: 493.7 cm/sec2 Ao max PG: LV V1 max: 127.9 cm/sec MV dec time: 0.19 sec 4.1 mmHg 89.8 cm/sec MV E/A: 0.75 PA V2 max: TR max sean: 97.1 cm/sec 270.2 cm/sec PA max P.8 mmHg TR max P.2 mmHg Left Ventricle The left ventricle is normal in size. There is normal left ventricular wall thickness. LV EF is 65%. Left ventricular systolic function is normal. Doppler measurements suggest impaired left ventricular relaxation, which is associated with grade I/IV or mild diastolic dysfunction. The left ventricular wall motion is normal. There is no thrombus. Probably no ASD ,VSD . or PFO seen. Right Ventricle The right ventricle is not well visualized secondary to technical limitations. Atria The right atrium is normal. Right atrium not well visualized secondary to technical limitations. The left atrium is mildly dilated. Mitral Valve There is mild mitral annular calcification. There is no evidence of mitral valve prolapse. There is no vegetation seen on the mitral valve. There is no mitral valve stenosis. There is no mitral regurgitation noted. Aortic Valve There is no aortic valvular vegetation. There is aortic sclerosis without aortic stenosis. No aortic regurgitation is present. Tricuspid Valve There is no tricuspid stenosis. There is a trace amount of tricuspid regurgitation. Tricuspid regurgitation jet envelope not well defined to measure RV systolic pressure accurately. Pulmonic Valve There is no pulmonic valvular stenosis. There is no pulmonic valvular regurgitation. Great Vessels The aortic root is not well visualized but is probably normal size. The inferior vena cava appeared normal and decreased > 50% with respiration (RAP 5-10 mmHg). Effusions There is no pericardial effusion. : MADDY MITCHELL Lakshmi
[2019-09-28] MEDS: IPRATROPIUM/ALBUTEROL 0.5-2.5 MG/3 ML AMPUL NEB SCH ×6 (00:39→20:59)
[2019-09-28] MEDS ORDERED: RINGERS SOLUTION,LACTATED 1,000 ML IV PRN (01:15)
[2019-09-28] MEDS: ALPRAZOLAM 0.25 MG TABLET PO PRN ×2 (03:14→15:19)
[2019-09-28] MEDS: METHYLPREDNISOLONE INJ 125 MG/2 ML SDV IV SCH ×2 (03:14→09:19)
[2019-09-28 04:34] LABS: HEMATOCRIT 43.3 % (37.9-51.0); HEMOGLOBIN 14.3 g/dL (13.5-17.0); MEAN CORPUSCULAR HEMOGLOBIN 30.1 pg (27.0-33.4); MEAN CORPUSCULAR HGB CONC 33.1 g/dL (32.0-36.0); MEAN CORPUSCULAR VOLUME 91 fl (80-97); PLATELET COUNT 147 10^3/uL (150-450); RED BLOOD COUNT 4.77 10^6/uL (4.35-5.55); RED CELL DISTRIBUTION WIDTH 14.5 % (11.5-14.0)
[2019-09-28 04:38] LABS: ALBUMIN 3.7 g/dL (3.5-5.0); ALKALINE PHOSPHATASE 75 U/L (38-126); ANION GAP 9 (5-19); ASPARTATE AMINO TRANSFERASE 27 U/L (17-59); BILIRUBIN,DIRECT 0.1 mg/dL (0.0-0.4); BILIRUBIN,TOTAL 0.4 mg/dL (0.2-1.3); BLOOD UREA NITROGEN 37 mg/dL (7-20); CALCIUM 8.6 mg/dL (8.4-10.2); CARBON DIOXIDE 27 mmol/L (22-30); CHLORIDE 103 mmol/L (98-107); GLUCOSE 293 mg/dL (75-110); POTASSIUM 3.9 mmol/L (3.6-5.0)
[2019-09-28 05:15] LABS: ABSOLUTE LYMPHOCYTES# (MANUAL) 1.4 10^3/uL (0.5-4.7); ABSOLUTE MONOCYTES # (MANUAL) 1.2 10^3/uL (0.1-1.4); BASOPHILS % (MANUAL) 0 % (0-2); EOSINOPHILS % (MANUAL) 0 % (0-6); LYMPHOCYTES % (MANUAL) 6 % (13-45); MONOCYTES % (MANUAL) 5 % (3-13); SEGMENTED NEUTROPHILS % (MAN) 89 % (42-78); TOTAL CELLS COUNTED 100
[2019-09-28 05:18] LABS: ANISOCYTOSIS SLIGHT; PLATELET COMMENT DECREASED; TOXIC GRANULATION SLIGHT; TOXIC VACUOLATION PRESENT
[2019-09-28] MEDS: HEPARIN SOD (PORCINE) 5,000 UNIT/ML 1 ML VIAL SUBCUT SCH ×3 (06:07→22:12)
[2019-09-28] MEDS: INSULIN REG, HUMAN 100 UNIT/ML 3 ML VIAL (PYX) SUBCUT SCH ×4 (07:34→22:16)
[2019-09-28] MEDS ORDERED: NORMAL SALINE 1000 ML 1,000 ML IV PRN (08:27)
[2019-09-28] MEDS: AZITHROMYCIN 500 MG in DEXTROSE 5%-WATER 250 ML IV SCH (09:14)
[2019-09-28] MEDS: CHOLECALCIFEROL (D3) 1,000 UNIT (25 MCG) TABLET PO SCH (09:22)
[2019-09-28] MEDS: TORSEMIDE 20 MG TABLET PO SCH (09:23)
[2019-09-28] MEDS: DOCUSATE SODIUM 100 MG CAPSULE PO SCH (09:23)
[2019-09-28] MEDS: SITAGLIPTIN PHOSPHATE 50 MG TABLET PO SCH (09:23)
[2019-09-28] MEDS: CLOPIDOGREL BISULFATE 75 MG TABLET PO SCH (09:23)
[2019-09-28] MEDS: HUM INSULIN NPH/REG INSULIN HM 100 UNIT/1 ML 3 ML SUBCUT SCH ×2 (09:25→17:17)
[2019-09-28] MEDS: AZITHROMYCIN 250 MG TABLET PO SCH (09:40)
[2019-09-28] MEDS ORDERED: (PENDING PHARMACY ID) (Ergocalciferol (Vitamin D2) [Vitamin D2] 50 MCG) PO SCH (10:00)
[2019-09-28] MEDS: CEFPODOXIME 200 MG TABLET PO SCH ×2 (11:27→22:17)
--- NOTE | 2019-09-28 16:30 | PDOC CRITICAL CARE PROG REPORT ---
General Date:: 09/28/19 ICU Day:: 2 Hospital Day:: 2 Events in the past 12 to 24 Hours:: Off oxygen, seen by pulmonology.ready for home soon. Review of systems relevant to events:: Respiratory, constitutional. Reason for ICU Addmission:: septic shock, PNA, acute hypoxic respiratory failure - Medications: Medications reviewed and adjusted accordingly: Yes Vasopressors:: None Sedation:: None Physical Exam Vital Signs: Temp Pulse Resp BP Pulse Ox 98.1 F 65 18 111/53 L 94 09/28/19 10:38 09/28/19 12:33 09/28/19 12:33 09/28/19 10:38 09/28/19 12:33 Intake & Output 09/27/19 09/28/19 09/29/19 06:59 06:59 06:59 Intake Total 2089 3507 454 Output Total 700 3400 2425 Balance 1389 107 -1971 Weight 129.5 kg 131.7 kg 131.7 kg Weight/Height Weight 131.7 kg Height 6 ft 3 in General appearance: PRESENT: no acute distress, well-developed, well-nourished Head exam: PRESENT: atraumatic, normocephalic Eye exam: PRESENT: conjunctiva pink, EOMI, PERRLA. ABSENT: scleral icterus Ear exam: PRESENT: normal external ear exam Mouth exam: PRESENT: moist, tongue midline Neck exam: ABSENT: carotid bruit, JVD, lymphadenopathy, thyromegaly Respiratory exam: PRESENT: clear to auscultation ricki, other - Somewhat SOB when talking, not new.. ABSENT: rales, rhonchi, wheezes Cardiovascular exam: PRESENT: RRR. ABSENT: diastolic murmur, rubs, systolic murmur Vascular exam: PRESENT: normal capillary refill GI/Abdominal exam: PRESENT: normal bowel sounds, soft. ABSENT: distended, guarding, mass, organolmegaly, rebound, tenderness Rectal exam: PRESENT: deferred Extremities exam: PRESENT: full ROM, pedal edema, +2 edema. ABSENT: calf tenderness, clubbing Neurological exam: PRESENT: alert, awake, oriented to person, oriented to place, oriented to time, oriented to situation, CN II-XII grossly intact. ABSENT: motor sensory deficit Psychiatric exam: PRESENT: appropriate affect, normal mood. ABSENT: homicidal ideation, suicidal ideation Laboratory/Radiographs Laboratory Results: 09/28/19 04:05 09/28/19 04:05 09/28/19 09/28/19 04:05 04:05 WBC 24.0 H RBC 4.77 Hgb 14.3 Hct 43.3 MCV 91 MCH 30.1 MCHC 33.1 RDW 14.5 H Plt Count 147 L Seg Neutrophils % Not Reportable Sodium 138.9 Potassium 3.9 Chloride 103 Carbon Dioxide 27 Anion Gap 9 BUN 37 H Creatinine 1.61 H Est GFR ( Amer) 51 L Glucose 293 H Calcium 8.6 Total Bilirubin 0.4 AST 27 Alkaline Phosphatase 75 Total Protein 7.0 Albumin 3.7 09/27/19 09/27/19 09/27/19 00:05 06:07 13:57 Troponin I 0.021 0.099 0.047 Impressions: Chest X-Ray 09/26/19 23:45 IMPRESSION: Patchy opacities at the lung bases which may represent infection or edema. Chest CT 09/27/19 00:00 IMPRESSION: No findings worrisome for dense pneumonia. Pulmonary fibrosis Probable postinflammatory nodules in the right lung CABG, known coronary atherosclerosis. Atherosclerotic change upper abdominal visceral arteries. Renal Ultrasound 09/27/19 00:00 IMPRESSION: NORMAL RENAL AND BLADDER ULTRASOUND. All labs, radiographs, diagnostic studies and EKGs were personally reviewed: Yes In addition, reports of radiographic and diagnostic studies were read: Yes Assessment and Plan - Diagnosis (1) DEDRICK (acute kidney injury) Is this a current diagnosis for this admission?: Yes Plan: Back to baseline (2) COPD (chronic obstructive pulmonary disease) Qualifiers: COPD type: emphysema Emphysema type: centrilobular Qualified Code(s): J43.2 - Centrilobular emphysema Is this a current diagnosis for this admission?: Yes Plan: Certainly this is having an effect on his breathing. He was seen today by Dr. nice who believes his chest CT appearance is consistent with IPF. Further work up and treatment as out patient. He will have a 3-way call with himself, patient and daughter in AM then hope to discharge home. (3) Diabetes Qualifiers: Diabetes mellitus type: type 2 Diabetes mellitus mcc insulin use: without termite treater use Diabetes mellitus complication status: with skin complications Diabetes mellitus complication detail: with other skin ulcer Qualified Code(s): E11.622 - Type 2 diabetes mellitus with other skin ulcer Is this a current diagnosis for this admission?: Yes Plan: Sugars coming down with decrease of steroids. (4) Pneumonia Qualifiers: Pneumonia type: due to unspecified organism Laterality: bilateral Lung location: lower lobe of lung Qualified Code(s): J18.9 - Pneumonia, unspecified organism Is this a current diagnosis for this admission?: Yes Plan: No specific cultures, but high suspicion. Changed to Vantin. (5) Septic shock Is this a current diagnosis for this admission?: Yes Plan: Resolved Plan Summary: Conference call in AM then D/C home. Critical Time Critical Time (minutes): 30 Level of Care: MEDICAL Anticipated discharge: Home Within: within 24 hours -: 1. The care of a critical patient is a dynamic process. 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 The timeframe for treatments given in order is not necessary the actual time these treatments may have been done. 2. This patient requires critical care secondary to ongoing requirements for therapy not offered or safe outside the critical care environment. Transfer to a lower level of care with altered life or limb morbidity and mortality. 3. Multidisciplinary rounds completed. 4. ABCDE bundle addressed.
[2019-09-28] MEDS: PREDNISONE 20 MG TABLET PO SCH (17:17)
[2019-09-28] MEDS ORDERED: CEFEPIME 2 GM/D5W RTU 2 GM/50 ML RTUPB IV SCH (22:00)
[2019-09-28] MEDS: SIMVASTATIN 40 MG TABLET PO SCH (22:17)
[2019-09-29] MEDS: IPRATROPIUM/ALBUTEROL 0.5-2.5 MG/3 ML AMPUL NEB SCH ×4 (00:27→12:18)
[2019-09-29 04:39] LABS: HEMOGLOBIN 14.1 g/dL (13.5-17.0); MEAN CORPUSCULAR HEMOGLOBIN 29.9 pg (27.0-33.4); MEAN CORPUSCULAR HGB CONC 33.5 g/dL (32.0-36.0); MEAN CORPUSCULAR VOLUME 89 fl (80-97); PLATELET COUNT 167 10^3/uL (150-450); RED BLOOD COUNT 4.71 10^6/uL (4.35-5.55); RED CELL DISTRIBUTION WIDTH 14.4 % (11.5-14.0); WHITE BLOOD COUNT 28.7 10^3/uL (4.0-10.5)
[2019-09-29 05:00] LABS: ABSOLUTE LYMPHOCYTES# (MANUAL) 2.3 10^3/uL (0.5-4.7); ABSOLUTE MONOCYTES # (MANUAL) 0.6 10^3/uL (0.1-1.4); BASOPHILS % (MANUAL) 0 % (0-2); EOSINOPHILS % (MANUAL) 0 % (0-6); LYMPHOCYTES % (MANUAL) 8 % (13-45); MONOCYTES % (MANUAL) 2 % (3-13); SEGMENTED NEUTROPHILS % (MAN) 90 % (42-78); TOTAL CELLS COUNTED 100
[2019-09-29 05:01] LABS: PLATELET COMMENT ADEQUATE; RBC MORPHOLOGY COMMENT NORMO-CYTIC/CHROMIC
[2019-09-29] MEDS: HEPARIN SOD (PORCINE) 5,000 UNIT/ML 1 ML VIAL SUBCUT SCH ×2 (05:49→14:23)
[2019-09-29 06:20] LABS: ANION GAP 12 (5-19); BLOOD UREA NITROGEN 36 mg/dL (7-20); CALCIUM 8.9 mg/dL (8.4-10.2); CARBON DIOXIDE 27 mmol/L (22-30); CHLORIDE 103 mmol/L (98-107); GLUCOSE 228 mg/dL (75-110); POTASSIUM 3.6 mmol/L (3.6-5.0)
[2019-09-29] MEDS: INSULIN REG, HUMAN 100 UNIT/ML 3 ML VIAL (PYX) SUBCUT SCH ×3 (07:47→15:35)
[2019-09-29] MEDS: ALPRAZOLAM 0.25 MG TABLET PO PRN (07:49)
[2019-09-29] MEDS: TORSEMIDE 20 MG TABLET PO SCH (09:48)
[2019-09-29] MEDS: CHOLECALCIFEROL (D3) 1,000 UNIT (25 MCG) TABLET PO SCH (09:49)
[2019-09-29] MEDS: CEFPODOXIME 200 MG TABLET PO SCH (09:49)
[2019-09-29] MEDS: CLOPIDOGREL BISULFATE 75 MG TABLET PO SCH (09:50)
[2019-09-29] MEDS: HUM INSULIN NPH/REG INSULIN HM 100 UNIT/1 ML 3 ML SUBCUT SCH ×2 (09:50→17:17)
[2019-09-29] MEDS: SITAGLIPTIN PHOSPHATE 50 MG TABLET PO SCH (09:50)
[2019-09-29] MEDS: DOCUSATE SODIUM 100 MG CAPSULE PO SCH (09:50)
[2019-09-29] MEDS: AZITHROMYCIN 250 MG TABLET PO SCH (09:50)
[2019-09-29] MEDS: PREDNISONE 20 MG TABLET PO SCH ×2 (10:35→17:18)
--- NOTE | 2019-09-29 10:47 | PDOC DISCHARGE SUMMARY ---
Impression - Admit/DC Date/PCP Admission Date/Primary Care Provider: 09/28/19 07:23 DESTINEY NAVA MD Discharge Date: 09/29/19 - Discharge Diagnosis (1) DEDRICK (acute kidney injury) Is this a current diagnosis for this admission?: Yes (2) COPD (chronic obstructive pulmonary disease) Is this a current diagnosis for this admission?: Yes (3) Diabetes Is this a current diagnosis for this admission?: Yes (4) Pneumonia Is this a current diagnosis for this admission?: Yes (5) Septic shock Is this a current diagnosis for this admission?: Yes - Assessment Summary: This patient is a 74 yo man admitted with what appeared to be septic shock due to a CAP. He had bilateral patchy infiltrates. Responded well to antibiotics. His work up included a chest CT showing peripheral honey combing consistent with IPF. He reports increase WOB and decreased exercise tolerance for about a year. He is not very ambulatory using a cart and holding onto the tomas at home. In addition to this he was seen by Dr. Kwan and will follow up with pulmonology as an out patient. He has been on Vantin since yesterday and will be sent home on this as well. He does not qualify for home O2. He did at one point but used it infrequently. - Additional Information Resuscitation Status: Full Code Discharge Diet: Diabetic Discharge Activity: Activity As Tolerated Referrals: DESTINEY NAVA MD [Primary Care Provider] - FEMI KWAN MD [ACTIVE STAFF] - Prescriptions: Prednisone [Deltasone 20 mg Tablet] 30 mg PO BID 12 Days #30 tablet Cefpodoxime Proxetil [Vantin 200 mg Tablet] 200 mg PO Q12 5 Days #10 tablet Home Medications: Alprazolam 0.25 mg PO BIDP PRN 09/27/19 Clopidogrel Bisulfate [Plavix 75 mg Tablet] 75 mg PO DAILY 09/27/19 Docusate Sodium [Colace 100 mg Capsule] 100 mg PO DAILY 09/27/19 Ergocalciferol (Vitamin D2) [Vitamin D2] 50 mcg PO DAILY 09/27/19 Metoprolol Succinate [Toprol Xl 25 mg Tab.sr] 25 mg PO DAILY 09/27/19 Simvastatin 40 mg PO QHS 09/27/19 Sitagliptin Phosphate [Januvia 50 mg Tablet] 50 mg PO DAILY 09/27/19 Torsemide [Demadex 20 mg Tablet] 60 mg PO DAILY 09/27/19 Cefpodoxime Proxetil [Vantin 200 mg Tablet] 200 mg PO Q12 5 Days #10 tablet 09/29/19 Prednisone [Deltasone 20 mg Tablet] 30 mg PO BID 12 Days #30 tablet 09/29/19 History of Present Illiness History of Present Illness: ROBB KUNZ is a 74 year old male admitted with septic shock from a bilateral PNA. Found also to have IPF. Home on prednisone and Vantin Hospital Course Hospital Course: See above. Physical Exam Vital Signs: Temp Pulse Resp BP Pulse Ox 98.1 F 80 18 133/54 H 99 09/28/19 20:29 09/29/19 08:40 09/29/19 10:00 09/29/19 10:00 09/29/19 08:40 Intake & Output 09/28/19 09/29/19 09/30/19 06:59 06:59 06:59 Intake Total 3507 2854 Output Total 3400 5485 375 Balance 107 -2631 -375 Weight 131.7 kg 131.7 kg General appearance: PRESENT: no acute distress, hard of hearing, well-developed, well-nourished Head exam: PRESENT: atraumatic, normocephalic Ear exam: PRESENT: normal external ear exam Mouth exam: PRESENT: moist, tongue midline Respiratory exam: PRESENT: decreased breath sounds Cardiovascular exam: PRESENT: RRR. ABSENT: diastolic murmur, rubs, systolic murmur Vascular exam: PRESENT: normal capillary refill GI/Abdominal exam: PRESENT: normal bowel sounds, soft. ABSENT: distended, guarding, mass, organolmegaly, rebound, tenderness Rectal exam: PRESENT: deferred Extremities exam: PRESENT: full ROM. ABSENT: calf tenderness, clubbing, pedal edema Musculoskeletal exam: PRESENT: normal inspection, other - Some venous stasis of long duration. Not infected. Neurological exam: PRESENT: alert, awake, oriented to person, oriented to place, oriented to time, oriented to situation, CN II-XII grossly intact. ABSENT: motor sensory deficit Skin exam: PRESENT: dry, intact, warm. ABSENT: cyanosis, rash Results Laboratory Results: WBC 28.7 10^3/uL (4.0-10.5) H 09/29/19 04:02 RBC 4.71 10^6/uL (4.35-5.55) 09/29/19 04:02 Hgb 14.1 g/dL (13.5-17.0) 09/29/19 04:02 Hct 42.0 % (37.9-51.0) 09/29/19 04:02 MCV 89 fl (80-97) 09/29/19 04:02 MCH 29.9 pg (27.0-33.4) 09/29/19 04:02 MCHC 33.5 g/dL (32.0-36.0) 09/29/19 04:02 RDW 14.4 % (11.5-14.0) H 09/29/19 04:02 Plt Count 167 10^3/uL (150-450) 09/29/19 04:02 Lymph % (Auto) Not Reportable 09/29/19 04:02 Reynolds % (Auto) Not Reportable 09/29/19 04:02 Eos % (Auto) Not Reportable 09/29/19 04:02 Baso % (Auto) Not Reportable 09/29/19 04:02 Absolute Neuts (auto) Not Reportable 09/29/19 04:02 Absolute Lymphs (auto) Not Reportable 09/29/19 04:02 Absolute Monos (auto) Not Reportable 09/29/19 04:02 Absolute Eos (auto) Not Reportable 09/29/19 04:02 Absolute Basos (auto) Not Reportable 09/29/19 04:02 Total Counted 100 09/29/19 04:02 Seg Neutrophils % Not Reportable 09/29/19 04:02 Seg Neuts % (Manual) 90 % (42-78) H 09/29/19 04:02 Lymphocytes % (Manual) 8 % (13-45) L 09/29/19 04:02 Monocytes % (Manual) 2 % (3-13) L 09/29/19 04:02 Eosinophils % (Manual) 0 % (0-6) 09/29/19 04:02 Basophils % (Manual) 0 % (0-2) 09/29/19 04:02 Abs Neuts (Manual) 25.8 10^3/uL (1.7-8.2) H 09/29/19 04:02 Abs Lymphs (Manual) 2.3 10^3/uL (0.5-4.7) 09/29/19 04:02 Abs Monocytes (Manual) 0.6 10^3/uL (0.1-1.4) 09/29/19 04:02 Absolute Eos (Manual) 0.0 10^3/uL (0.0-0.6) 09/29/19 04:02 Abs Basophils (Manual) 0.0 10^3/uL (0.0-0.2) 09/29/19 04:02 Toxic Granulation SLIGHT 09/28/19 04:05 Toxic Vacuolation PRESENT 09/28/19 04:05 Platelet Comment ADEQUATE 09/29/19 04:02 Anisocytosis SLIGHT 09/28/19 04:05 RBC Morph Comment NORMO-CYTIC/CHROMIC 09/29/19 04:02 PT 15.5 SEC (11.4-15.4) H 09/27/19 00:30 INR 1.22 09/27/19 00:30 Carbonic Acid 1.30 mmol/L (1.05-1.35) 09/27/19 02:50 HCO3/H2CO3 Ratio 19:1 09/27/19 02:50 ABG pH 7.39 (7.35-7.45) 09/27/19 02:50 ABG pCO2 43.2 mmHg (35-45) 09/27/19 02:50 ABG pO2 72.7 mmHg (80-100) L 09/27/19 02:50 ABG HCO3 25.4 mmol/L (20-24) H 09/27/19 02:50 ABG Total CO2 26.8 mmol/L (23-27) 09/27/19 02:50 ABG O2 Saturation 94.5 % (94-98) 09/27/19 02:50 ABG Base Excess 0.2 mmol/L 09/27/19 02:50 VBG pH 7.37 (7.30-7.42) 09/27/19 00:02 VBG pCO2 52.4 mmHg (35-63) 09/27/19 00:02 VBG HCO3 29.6 mmol/L (20-32) 09/27/19 00:02 VBG Base Excess 3.0 mmol/L 09/27/19 00:02 FiO2 2L 09/27/19 02:50 Sodium 142.4 mmol/L (137-145) 09/29/19 05:45 Potassium 3.6 mmol/L (3.6-5.0) 09/29/19 05:45 Chloride 103 mmol/L (98-107) 09/29/19 05:45 Carbon Dioxide 27 mmol/L (22-30) 09/29/19 05:45 Anion Gap 12 (5-19) 09/29/19 05:45 BUN 36 mg/dL (7-20) H 09/29/19 05:45 Creatinine 1.56 mg/dL (0.52-1.25) H 09/29/19 05:45 Est GFR ( Amer) 53 (>60) L 09/29/19 05:45 Est GFR (Non-Af Amer) Cancelled 09/29/19 04:02 Est GFR (MDRD) Non-Af 43 (>60) L 09/29/19 05:45 Glucose 228 mg/dL (75-110) H 09/29/19 05:45 POC Glucose 254 mg/dL (70-110) H 09/29/19 09:55 Lactic Acid (Sepsis) 3.4 mmol/L (0.7-2.1) H 09/27/19 00:02 Calcium 8.9 mg/dL (8.4-10.2) 09/29/19 05:45 Total Bilirubin 0.4 mg/dL (0.2-1.3) 09/28/19 04:05 Direct Bilirubin 0.1 mg/dL (0.0-0.4) 09/28/19 04:05 Neonat Total Bilirubin Not Reportable 09/28/19 04:05 Neonat Direct Bilirubin Not Reportable 09/28/19 04:05 Neonat Indirect Bili Not Reportable 09/28/19 04:05 AST 27 U/L (17-59) 09/28/19 04:05 ALT 17 U/L (<50) 09/28/19 04:05 Alkaline Phosphatase 75 U/L (38-126) 09/28/19 04:05 Troponin I 0.047 ng/mL 09/27/19 13:57 Total Protein 7.0 g/dL (6.3-8.2) 09/28/19 04:05 Albumin 3.7 g/dL (3.5-5.0) 09/28/19 04:05 EGFR Cancelled 09/29/19 04:02 Random Cortisol 17.30 ug/dL (None Established) 09/27/19 06:07 Urine Color YELLOW 09/27/19 00:30 Urine Appearance CLEAR 09/27/19 00:30 Urine pH 5.0 (5.0-9.0) 09/27/19 00:30 Ur Specific Rowdy 1.014 09/27/19 00:30 Urine Protein 100 mg/dL (NEGATIVE) H 09/27/19 00:30 Urine Glucose (UA) NEGATIVE mg/dL (NEGATIVE) 09/27/19 00:30 Urine Ketones NEGATIVE mg/dL (NEGATIVE) 09/27/19 00:30 Urine Blood SMALL (NEGATIVE) H 09/27/19 00:30 Urine Nitrite NEGATIVE (NEGATIVE) 09/27/19 00:30 Urine Bilirubin NEGATIVE (NEGATIVE) 09/27/19 00:30 Urine Urobilinogen NEGATIVE mg/dL (<2.0) 09/27/19 00:30 Ur Leukocyte Esterase NEGATIVE (NEGATIVE) 09/27/19 00:30 Urine WBC (Auto) 1 /HPF 09/27/19 00:30 Urine RBC (Auto) 0 /HPF 09/27/19 00:30 Squamous Epi Cells Auto <1 /HPF 09/27/19 00:30 Urine Mucus (Auto) RARE /LPF 09/27/19 00:30 Urine Ascorbic Acid NEGATIVE (NEGATIVE) 09/27/19 00:30 Influenza A (Rapid) NEGATIVE (NEGATIVE) 09/27/19 00:30 Influenza B (Rapid) NEGATIVE (NEGATIVE) 09/27/19 00:30 09/27/19 09/27/19 09/27/19 00:05 06:07 13:57 Troponin I 0.021 0.099 0.047 Impressions: Chest X-Ray 09/26/19 23:45 IMPRESSION: Patchy opacities at the lung bases which may represent infection or edema. Chest CT 09/27/19 00:00 IMPRESSION: No findings worrisome for dense pneumonia. Pulmonary fibrosis Probable postinflammatory nodules in the right lung CABG, known coronary atherosclerosis. Atherosclerotic change upper abdominal visceral arteries. Renal Ultrasound 09/27/19 00:00 IMPRESSION: NORMAL RENAL AND BLADDER ULTRASOUND. Plan Health Concerns: IPF and COPD Plan of Treatment: Prednisone and vantin. Needs to follow up with Dr. Curseen. Goals: Better exercise tolerance and longer life expectancy. Critical Time: 35 Level of Care: MEDICAL Stroke Is this a Stroke Patient?: No Acute Heart Failure - Is this a Heart Failure Patient?: No
[2019-09-29 17:33] VITALS: BP 151/69
--- NOTE | 2019-10-05 11:24 | PDOC CONSULTATION ---
Consultation Consult Date: 09/28/19 Attending physician:: NIKHIL SILVA Provider Consulted: FEMI BEDOYA Consult reason:: Abnormal CT scan History of Present Illness Admission Date/PCP: 09/28/19 07:23 DESTINEY NAVA MD History of Present Illness: ROBB KUNZ is a 74 year old male with complaint increasing shortness of breath cough fevers and chills and presented to the emergency room after 2 weeks of decline he was subsequently transferred to the ICU and has begun to improve from shock and response to antibiotics. It was noted on CT scan D has some honeycombing at the bases of his lungs consistent with pulmonary fibrosis. He denies hemoptysis his PPD was negative dates unknown he said no history of chronic lung disease as a child or adolescent he experienced admits to exposure to installment all amounts of passive smoke as a child as well as an adult he himself smoked a pack a day for maybe 15 years. 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 He has no pets no recent travel he denies angina-like chest pain sleeps on 2 pillows no PND no nocturnal cough no edema he admits to snoring and restless sleep has nocturia 2- 3 times per night denies unrestful sleep or excessive daytime somnolence. Past Medical History Cardiac Medical History: Reports: Congestive Heart Failure, Coronary Artery Disease, Hyperlipidema, Hypertension Pulmonary Medical History: Reports: Asthma, Chronic Obstructive Pulmonary Disease (COPD) Endocrine Medical History: Reports: Diabetes Mellitus Type 1, Diabetes Mellitus Type 2 Musculoskeltal Medical History: Reports: Arthritis Traumatic Medical History: Denies: Gunshot Wound, Traumatic Brain Injury Hematology: Denies: Sickle Cell Disease Infectious Medical History: Denies: Hepatitis B, Hepatitis C Past Surgical History Past Surgical History: Reports: Cardiac Catheterization, Coronary Artery Bypass Graft Social History Information Source: Patient, [facility], [facility] Records 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, 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, 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, 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 Lives with: Family Smoking Status: Former Smoker Number of Years Smokin Last Time Smoked: 3 Passive smoke exposure as: Both Frequency of Alcohol Use: None Hx Recreational Drug Use: No Drugs: None Hx Prescription Drug Abuse: No Do you have pets?: No Have you had any respiratory illnesses as a child?: No Have you been exposed to any sick contacts recently?: No Have you travelled outside of [place] in the past 12 months?: No Family History Family History: CAD, DM, Hypertension Parental Family History Reviewed: Yes Children Family History Reviewed: Yes Sibling(s) Family History Reviewed.: Yes Medication/Allergy Home Medications: Alprazolam 0.25 mg PO BIDP PRN 09/27/19 Clopidogrel Bisulfate [Plavix 75 mg Tablet] 75 mg PO DAILY 09/27/19 Docusate Sodium [Colace 100 mg Capsule] 100 mg PO DAILY 09/27/19 Ergocalciferol (Vitamin D2) [Vitamin D2] 50 mcg PO DAILY 09/27/19 Metoprolol Succinate [Toprol Xl 25 mg Tab.sr] 25 mg PO DAILY 09/27/19 Simvastatin 40 mg PO QHS 09/27/19 Sitagliptin Phosphate [Januvia 50 mg Tablet] 50 mg PO DAILY 09/27/19 Torsemide [Demadex 20 mg Tablet] 60 mg PO DAILY 09/27/19 Cefpodoxime Proxetil [Vantin 200 mg Tablet] 200 mg PO Q12 5 Days #10 tablet 09/29/19 Prednisone [Deltasone 20 mg Tablet] 30 mg PO BID 12 Days #30 tablet 09/29/19 Allergies/Adverse Reactions: Penicillins Allergy (Verified 07/24/18 11:33) Review of Systems All systems: reviewed and no additional remarkable complaints except as stated Physical Exam Vital Signs: Temp Pulse Resp BP Pulse Ox 97.7 F 67 17 108/60 98 09/28/19 06:00 09/28/19 08:03 09/28/19 08:09 09/28/19 08:09 09/28/19 08:09 Intake & Output 09/27/19 09/28/19 09/29/19 06:59 06:59 06:59 Intake Total 2089 3507 454 Output Total 700 3400 Balance 1389 107 454 Weight 129.5 kg 131.7 kg General appearance: PRESENT: no acute distress, cooperative, disheveled, hard of hearing, obese, well-developed, well-nourished Head exam: PRESENT: atraumatic, normocephalic Eye exam: PRESENT: conjunctiva pale, EOMI. ABSENT: nystagmus, periorbital swelling Mouth exam: PRESENT: dry mucosa, neck supple, tongue midline Teeth exam: PRESENT: edentulous Neck exam: ABSENT: carotid bruit, JVD, lymphadenopathy, thyromegaly Respiratory exam: PRESENT: decreased breath sounds, prolonged expiratory phas, rales, rhonchi, symmetrical, unlabored. ABSENT: retraction, stridor, tachypnea Cardiovascular exam: PRESENT: RRR, +S1, +S2, systolic murmur Pulses: PRESENT: normal radial pulses GI/Abdominal exam: PRESENT: soft. ABSENT: distended, guarding, mass, rebound, rigid, tenderness Extremities exam: ABSENT: calf tenderness, joint swelling Musculoskeletal exam: ABSENT: deformity, dislocation Neurological exam: PRESENT: alert, awake Psychiatric exam: PRESENT: appropriate affect Skin exam: PRESENT: dry, warm Results Laboratory Results: 09/28/19 04:05 09/28/19 04:05 09/28/19 09/28/19 04:05 04:05 WBC 24.0 H RBC 4.77 Hgb 14.3 Hct 43.3 MCV 91 MCH 30.1 MCHC 33.1 RDW 14.5 H Plt Count 147 L Seg Neutrophils % Not Reportable Sodium 138.9 Potassium 3.9 Chloride 103 Carbon Dioxide 27 Anion Gap 9 BUN 37 H Creatinine 1.61 H Est GFR ( Amer) 51 L Glucose 293 H Calcium 8.6 Total Bilirubin 0.4 AST 27 Alkaline Phosphatase 75 Total Protein 7.0 Albumin 3.7 09/27/19 09/27/19 09/27/19 00:05 06:07 13:57 Troponin I 0.021 0.099 0.047 Impressions: Chest X-Ray 09/26/19 23:45 IMPRESSION: Patchy opacities at the lung bases which may represent infection or edema. Chest CT 09/27/19 00:00 IMPRESSION: No findings worrisome for dense pneumonia. Pulmonary fibrosis Probable postinflammatory nodules in the right lung CABG, known coronary atherosclerosis. Atherosclerotic change upper abdominal v isceral arteries. Renal Ultrasound 09/27/19 00:00 IMPRESSION: NORMAL RENAL AND BLADDER ULTRASOUND. Assessment & Plan - Diagnosis (1) Acute and chronic respiratory failure with hypoxia Is this a current diagnosis for this admission?: Yes Plan: Well to vasopressors and is currently off of them had pneumonia and septic shock (2) COPD (chronic obstructive pulmonary disease) Qualifiers: COPD type: emphysema Emphysema type: centrilobular Qualified Code(s): J43 .2 - Centrilobular emphysema Is this a current diagnosis for this admission?: Yes Plan: Labe plus lama plus inhaled corticosteroid as well as rescue medication his x- ray shows bilateral honeycombing particularly at the bases consistent with pu lmonary fibrosis we will see patient in office,. PFT and start him on pirfenidone - Time Time Spent: 50 to 70 Minutes
== END 2019-09-29 17:45 | disposition home or self-care (01) | DRG 871 ==
LOC: ER 23:33 → OBSVTOIN 09-27 01:41 → EH 09-27 01:41 → UNDOADMIN 09-27 01:41 → EH 09-27 03:02 → ICU 09-27 03:02 → EH 09-28 07:23 → UNDOADMOB 09-28 07:23 → INTOOBSV 09-28 07:23 → ICU 09-28 07:23 → UNDODISOB 09-29 17:45
PROVIDERS: ADMIT Internal Medicine; ATTEND Internal Medicine
DX: A41.9 Sepsis, unspecified organism (principal); J18.9 Pneumonia, unspecified organism; R65.21 Severe sepsis with septic shock; J96.21 Acute and chronic respiratory failure with hypoxia; I13.0 Hypertensive heart and chronic kidney disease with heart failure and stage 1 through stage 4 chronic kidney disease, or unspecified chronic kidney disease; J84.10 Pulmonary fibrosis, unspecified; J43.2 Centrilobular emphysema; E66.01 Morbid (severe) obesity due to excess calories; I25.10 Atherosclerotic heart disease of native coronary artery without angina pectoris; E11.22 Type 2 diabetes mellitus with diabetic chronic kidney disease; N18.9 Chronic kidney disease, unspecified; I50.9 Heart failure, unspecified; M19.90 Unspecified osteoarthritis, unspecified site; Z68.36 Body mass index [BMI] 36.0-36.9, adult; Z95.1 Presence of aortocoronary bypass graft; Z87.891 Personal history of nicotine dependence; Z88.0 Allergy status to penicillin; Z79.51 Long term (current) use of inhaled steroids; Z79.84 Long term (current) use of oral hypoglycemic drugs
CPT/HCPCS: 36415; 71045; 71250; 76775; 80048; 80053; 81001; 82533; 82803; 82962; 83605; 84484; 85025; 85610; 87040; 87804; 93005; 93010; 93306; 94640; 96361; 96365; 96375; 99232; 99239; 99291; J0456; J0692; J1644; J1815; J2930; J3370; J3490; J7030; J7060; J7120; J7512; J7620

== ENCOUNTER → 2020-06-22 | Outpatient (CLI) | payer MEDICARE, OTHER ==
--- NOTE | 2020-06-22 13:11 | RADIOLOGY REPORT (SQ) ---
EXAM DESCRIPTION: CT CHEST WITHOUT IMAGES COMPLETED DATE/TIME: 06/22/2020 10:31 am REASON FOR STUDY: R91.8 OTHER NONSPECIFIC ABNORMAL FINDING OF LUNG FIELD R91.8 OTHER NONSPECIFIC AB NORMAL FINDING OF LUNG FIELD COMPARISON: 09/27/2019 TECHNIQUE: CT scan performed of the chest without intravenous contrast. Images reviewed with lung, soft tissue and bone windows. Reconstructed coronal and sagittal MPR images reviewed. All images st ored on PACS. All CT scanners at this facility use dose modulation, iterative reconstruction, and/or weight based d osing when appropriate to reduce radiation dose to as low as reasonably achievable (ALARA). [facility]: Dose Right [facility]: CareDose [facility]: Dose Right [facility]: Teradose 4D [facility]: [email or web address] RADIATION DOSE: CT Rad equipment meets quality standard of care and radiation dose reduction techniq ues were employed. CTDIvol: 18.6 mGy. DLP: 810 mGy-cm. mGy. LIMITATIONS: No technical limitations. FINDINGS: LUNGS AND PLEURA: Re- demonstration of increased reticular markings in a predominantly sub pleural distribution with honeycombing, consistent with pulmonary fibrosis. Few scattered calcified granulomas. They have right minor fissure nodule demonstrates calcification on today's examination, consistent with sequela of previous granulomatous process. HILAR AND MEDIASTINAL STRUCTURES: No identified masses or abnormal nodes. No obvious aneurysm. HEART AND VASCULAR STRUCTURES: No aneurysm. No pericardial effusion. Coronary artery disease. Midl ine surgical changes. UPPER ABDOMEN: No significant findings. Limited exam. THYROID AND OTHER SOFT TISSUES: No masses calcification. No adenopathy. BONES: No significant finding. HARDWARE: None in the chest. OTHER: No other significant findings. IMPRESSION: Stable pulmonary exam demonstrating findings consistent with pulmonary fibrosis. Scatte red granulomas. No suspicious nodules or masses. No acute findings. TECHNICAL DOCUMENTATION: JOB ID: [id number] Quality ID # [id number]: Final reports with documentation of one or more dose reduction techniques (e.g., Au tomated exposure control, adjustment of the mA and/or kV according to patient size, use of iterative reconstruction technique) 2010 [employer]- All Rights Reserved Reading location - IP/workstation name: [email or web address]
== END ==
LOC: RAD 10:00
PROVIDERS: ATTEND Internal Medicine Pulmonary Disease
DX: R91.8 Other nonspecific abnormal finding of lung field (principal)
CPT/HCPCS: 71250

== ENCOUNTER 2020-07-19 19:57 | Emergency (ER) | payer MEDICARE, OTHER ==
[2020-07-19 20:54] LABS: INTERNATIONAL RATION (INR) 1.09; PROTHROMBIN TIME 14.3 SEC (11.4-15.4)
[2020-07-19 20:55] LABS: PARTIAL THROMBOPLASTIN TIME 31.5 SEC (23.5-35.8)
[2020-07-19 20:57] LABS: D-DIMER 1.06 ug/mL (0.00-0.50)
[2020-07-19 21:02] LABS: HEMATOCRIT 43.3 % (37.9-51.0); HEMOGLOBIN 14.3 g/dL (13.5-17.0); MEAN CORPUSCULAR HEMOGLOBIN 30.3 pg (27.0-33.4); MEAN CORPUSCULAR HGB CONC 33.1 g/dL (32.0-36.0); MEAN CORPUSCULAR VOLUME 92 fl (80-97); RED BLOOD COUNT 4.72 10^6/uL (4.35-5.55); WHITE BLOOD COUNT 14.9 10^3/uL (4.0-10.5)
[2020-07-19 21:03] LABS: ABSOLUTE BASOPHILS # (AUTO) 0.1 10^3/uL (0.0-0.2); ABSOLUTE LYMPHOCYTES (AUTO) 1.5 10^3/uL (0.5-4.7); ABSOLUTE MONOCYTES (AUTO) 0.9 10^3/uL (0.1-1.4); ABSOLUTE NEUT (AUTO) 12.4 10^3/uL (1.7-8.2); BASOPHILS % (AUTO) 0.4 % (0-2); EOSINOPHILS % (AUTO) 0.2 % (0-6); LYMPHOCYTES % (AUTO) 10.2 % (13-45); MONOCYTES % (AUTO) 5.9 % (3-13); PLATELET COUNT 216 10^3/uL (150-450); RED CELL DISTRIBUTION WIDTH 15.1 % (11.5-14.0); SEGMENTED NEUTROPHILS % (AUTO) 83.3 % (42-78); TOTAL CELLS COUNTED % (AUTO) 100 %
[2020-07-19 21:06] LABS: ALBUMIN 3.7 g/dL (3.5-5.0); ALKALINE PHOSPHATASE 69 U/L (38-126); ANION GAP 8 (5-19); ASPARTATE AMINO TRANSFERASE 23 U/L (17-59); BILIRUBIN,DIRECT 0.4 mg/dL (0.0-0.4); BILIRUBIN,TOTAL 0.5 mg/dL (0.2-1.3); BLOOD UREA NITROGEN 26 mg/dL (7-20); CALCIUM 8.8 mg/dL (8.4-10.2); CARBON DIOXIDE 30 mmol/L (22-30); CHLORIDE 104 mmol/L (98-107); GLUCOSE 142 mg/dL (75-110); POTASSIUM 3.9 mmol/L (3.6-5.0); TOTAL PROTEIN 6.5 g/dL (6.3-8.2)
[2020-07-19 21:10] LABS: APPEARANCE,URINE CLEAR; BILIRUBIN,URINE NEGATIVE (NEGATIVE); COLOR,URINE YELLOW; GLUCOSE, URINE NEGATIVE (NEGATIVE); KETONES,URINE NEGATIVE (NEGATIVE); PROTEIN,URINE 100 mg/dL (NEGATIVE); URINE SPECIFIC GRAVITY 1.012; UROBILINOGEN,URINE NEGATIVE mg/dL (<2.0)
[2020-07-19 21:17] LABS: TROPONIN I 0.033 ng/mL
--- NOTE | 2020-07-19 21:34 | RADIOLOGY REPORT (SQ) ---
EXAM DESCRIPTION: [facility]: XR CHEST 1 VIEW CLINICAL HISTORY: 75 years Male; sob fever; COMPARISON: 09/27/2019 FINDINGS: Lungs: No change since prior exam, with mild interstitial thickening in both lower lobes. No focal acute infiltrates. No pneumothorax or pleural effusion. Mediastinum: Sternal wires are again noted. Mediastinum is unchanged. Bones: Bony structures are unremarkable. IMPRESSION: 1. No focal acute infiltrates. Cannot exclude a mild/early interstitial pneumonitis in the midst of chronic interstitial changes in both lower lobes. 2. Previous sternotomy.
--- NOTE | 2020-07-19 22:08 | ER Document Report ---
ED General - General Chief Complaint: Fever Stated Complaint: FEVER Primary Care Provider: FEMI BEDOYA MD [Primary Care Provider] - Follow up as needed Notes: 75-year-old male history of COPD on home O2, possible pulmonary fibrosis as per prior chart, hypertension, hyperlipidemia, CAD, CHF presents with fever x1 day. Patient also endorses feeling more short of breath than his baseline for the past approximately 1 day. Patient denies any chest pain, lower extremity edema, cough, abdominal pain, vomiting, diarrhea or constipation, urinary symptoms, back pain, headache, neck pain or stiffness, recent infections, recent hospitalizations, rashes, sick contacts TRAVEL OUTSIDE OF THE [place] IN LAST 30 DAYS: No - Related Data Allergies/Adverse Reactions: Penicillins Allergy (Verified 07/24/18 11:33) Past Medical History - General Information source: Patient, [facility] Records - Social History Smoking Status: Former Smoker Chew tobacco use (# tins/day): No Frequency of alcohol use: None Drug Abuse: None Family History: CAD, DM, Hypertension Patient has homicidal ideation: No - Past Medical History Cardiac Medical History: Reports: Hx Congestive Heart Failure, Hx Coronary Artery Disease, Hx Hypercholesterolemia, Hx Hypertension Pulmonary Medical History: Reports: Hx Asthma, Hx COPD Endocrine Medical History: Reports: Hx Diabetes Mellitus Type 1, Hx Diabetes Mellitus Type 2 Renal/ Medical History: Denies: Hx Peritoneal Dialysis Musculoskeletal Medical History: Reports Hx Arthritis Skin Medical History: Reports Hx Cellulitis Traumatic Medical History: Denies: Hx Gunshot Wound, Hx Traumatic Brain Injury Past Surgical History: Reports: Hx Cardiac Catheterization, Hx Cardiac Surgery - bypass, Hx Coronary Artery Bypass Graft - Immunizations Hx Diphtheria, Pertussis, Tetanus Vaccination: Yes Review of Systems - Review of Systems Notes: REVIEW OF SYSTEMS: CONSTITUTIONAL : + fever, chills, or sweats. EENT: Denies recent cold/sinus symptoms, denies throat pain CARDIOVASCULAR: Denies chest pain, ANA RESPIRATORY: Denies cough, + shortness of breath. GASTROINTESTINAL: Denies abdominal pain, nausea/vomiting. GENITOURINARY: Denies difficulty urinating, painful urination. MUSCULOSKELETAL: Denies neck pain, back pain. SKIN: Denies rash or skin lesions. HEMATOLOGIC : Denies easy bruising or bleeding. LYMPHATIC: Denies swollen, enlarged glands. NEUROLOGICAL: Denies headache, denies change in gait. PSYCHIATRIC: Denies anxiety or stress or depression. Physical Exam - Vital signs Vitals: Temp 102.7 F H 07/19/20 19:58 - Notes Notes: PHYSICAL EXAMINATION: GENERAL: Well-nourished, chronically ill-appearing but nontoxic-appearing elderly man standing up to pee at bedside with nasal cannula in place in no acute distress HEAD: Atraumatic, normocephalic. EYES: Pupils equal round and appropriate constriction, sclera anicteric, conjunctiva are normal. ENT: nares patent, moist mucous membranes. NECK: Normal range of motion, supple without lymphadenopathy LUNGS: Breath sounds clear to auscultation bilaterally and equal. No wheezes rales or rhonchi. Mildly tachypneic, no accessory muscle use, speaking in full sentences HEART: Regular rate and rhythm without murmurs ABDOMEN: Soft, nontender, no guarding, no masses, no CVAT EXTREMITIES: Normal range of motion, no pitting or edema. No cyanosis. NEUROLOGICAL: Awake, alert, conversing appropriately, moves all extremities spontaneously. PSYCH: Normal mood, normal affect. SKIN: Warm, Dry, normal turgor Course - Re-evaluation Re-evalutation: 07/19/20 22:05 Patient presents with fever, endorses shortness of breath on review of systems. patient has normal respiratory rate and effort and clear lungs. rule out COVID- 19 infection, pneumonia, ACS, CHF exacerbation, PE, occult UTI. No current indication to treat for COPD exacerbation, will continue to monitor. Patient well-appearing, will reevaluate for possible discharge or final results of his ED work-up. 07/20/20 02:58 Patient's repeat pulmonary evaluation has remained reassuring. patient has remained stable on his home dose of O2 by nasal cannula, he has been breathing at a normal rate and with normal effort throughout his ED evaluation. There is signs of possible early COVID pneumonia on his chest imaging but given that patient's objective respiratory status has remained at his baseline, patient appropriate for trial of home care with return to ED precautions given. I discussed this plan with the patient and he was in agreement and felt comfortable going home. Patient has mild increase in creatinine likely from mild dehydration as patient's blood pressure was in the lower range on arrival but this blood pressure has normalized with 1 dose of IV fluids this patient has tolerated well. Has a check the patient to increase his p.o. hydration. Rylan oliver's previous echo from last year shows normal ejection fraction and only mild diastolic heart failure. Patient ready for discharge with PCP follow-up The patient was evaluated during the global COVID-19 pandemic and that diagnosis was suspected/considered upon their initial presentation. Their evaluation, treatment and testing was consistent with current guidelines for patients who present with complaints or symptoms that may be related to COVID-19. - Vital Signs Vital signs: Temp Pulse Resp BP Pulse Ox 98.7 F 16 131/61 H 96 07/19/20 23:41 07/20/20 00:30 07/20/20 02:01 07/20/20 02:01 - Laboratory Result Diagrams: 07/19/20 20:13 07/19/20 20:13 Laboratory results interpreted by me: 07/19/20 07/19/20 07/19/20 20:13 20:13 20:13 WBC 14.9 H RDW 15.1 H Lymph % (Auto) 10.2 L Absolute Neuts (auto) 12.4 H Seg Neutrophils % 83.3 H D-Dimer 1.06 H BUN 26 H Creatinine 1.89 H Est GFR ( Amer) 42 L Est GFR (MDRD) Non-Af 35 L Glucose 142 H NT-Pro-B Natriuret Pep Urine Protein Urine Blood 07/19/20 07/19/20 20:13 20:32 WBC RDW Lymph % (Auto) Absolute Neuts (auto) Seg Neutrophils % D-Dimer BUN Creatinine Est GFR ( Amer) Est GFR (MDRD) Non-Af Glucose NT-Pro-B Natriuret Pep 791 H Urine Protein 100 H Urine Blood SMALL H - EKG Interpretation by Me Additional EKG results interpreted by me: 07/19/20 22:10 Sinus rhythm, first-degree AV block, no significant ST elevations or depressions, no significant T wave abnormalities, wandering baseline Discharge - Discharge Clinical Impression: Shortness of breath Fever Qualifiers: Fever type: unspecified Qualified Code(s): R50.9 - Fever, unspecified Disposition: HOME, SELF-CARE Additional Instructions: It is likely that your fever is secondary to COVID-19 infection. If you have any worsening symptoms such as worsening shortness of breath, chest pain, dizziness, fainting, weakness, vomiting, severe diarrhea, confusion, neck pain or stiffness, urinary symptoms, or any other worsening or alarming symptoms return to the emergency department immediately. Follow-up with either your primary doctor or your church supervisor within the next 3 days to be reevaluated. Take 650 mg of Tylenol (i.e. acetaminophen) every 4-6 hours as needed for fever symptoms. Your kidney function is mildly worsened during this visit, increase your intake of fluids over the next several days and follow this up with your primary doctor. Patient was provided with discharge information including: As a person under investigation for Covid 19, the [facility], division of public health advises you to adhere to the following guidance until your test results are reported to you. If your test result is positive, you will receive additional information from your provider and your local health department at that time. Remain at home until you are cleared by the health provider or public health authorities. Keep a log of visitors to your home, notify any visitors to your home of your is olation status. If you plan to move to a new address or leave the county, notify the local health department in your County. Call your doctor or seek care if you have an urgent medical need. Before seeking medical care, call ahead to get instructions from the provider before arriving at the medical office clinic or hospital. Notify them that you are being tested for the virus that causes Covid 19 so that arrangements can be made, as necessary, to prevent transmission to others in the healthcare setting. Next, notify the local health department in your county. If a medical emergency arises and you need to call 911, inform the first responders that you are being tested for the virus that causes Covid 19. Next, notify the local health department in your county. Referrals: FEMI BEDOYA MD [Primary Care Provider] - Follow up as needed
--- NOTE | 2020-07-19 23:15 | RADIOLOGY REPORT (SQ) ---
EXAM DESCRIPTION: CT CHEST WITHOUT IV CONTRAST COMPLETED DATE/TME: 07/19/2020 21:59 CLINICAL HISTORY: 75 years, Male, SOB leukocytosis fever COPD pulm fibrosis COMPARISON: Chest x-ray today's date. CT chest 06/22/2020. TECHNIQUE: 305 Images stored on PACS. All CT scanners at this facility use dose modulation, iterative reconstruction, and/or weight based dosing when appropriate to reduce radiation dose to as low as reasonably achievable (ALARA). [facility]: Dose Right [facility]: CareDose [facility]: Dose Right [facility]: Teradose 4D [facility]: [employer] LIMITATIONS: None. FINDINGS: Evaluation of the mediastinum and hilum limited due to lack of IV contrast. Post surgical change of the mediastinum with atheromatous change and coronary artery calcification. Heart is mildly enlarged but stable. Limited evaluation of upper abdomen grossly unremarkable. Osseous structures are otherwise grossly intact. There is no pneumothorax. The visualized airways are patent. Evidence of pulmonary fibrosis, showing little change from the prior exam. No effusion. No confluent airspace opacity. However, there is minimal groundglass opacity in the right lung base suggesting minor pneumonitis. IMPRESSION: Underlying fibrosis with minimal groundglass opacities of the right lung base. Imaging features can be seen with viral pneumonia, though are nonspecific and can occur with a variety of infectious and noninfectious processes. [PneInd] TECHNICAL DOCUMENTATION: Quality ID # [id number]: Final reports with documentation of one or more dose reduction techniques (e.g., Automated exposure control, adjustment of the mA and/or kV according to patient size, use of iterative reconstruction technique) copyright 2011 [employer]- All Rights Reserved
--- NOTE | 2020-07-19 23:50 | RADIOLOGY REPORT (SQ) ---
Perfusion lung scan: Clinical indication: 75-year old patient with dyspnea, elevated d-dimer. Comparison: Chest radiograph performed 07/19/2020; CT of the chest from 07/19/2020. Technique: Following the intravenous injection of 5.37 mCi of technetium 99m labeled MAA, planar images of the chest were obtained in multiple projections. No ventilation imaging was obtained. Findings: There is heterogeneous radiotracer distribution in the lungs on perfusion images, likely from the patient's known fibrosis. No segmental or subsegmental defects are seen to suggest a pulmonary artery embolism. Impression: probability ventilation/perfusion lung scan.
[2020-07-20] MEDS ORDERED: NORMAL SALINE 1000 ML 1,000 ML IV ONE (00:50)
[2020-07-20 04:20] VITALS: BP 146/60
== END 2020-07-20 04:21 | disposition home or self-care (01) ==
LOC: ER 19:57
DX: R50.9 Fever, unspecified (principal); I11.0 Hypertensive heart disease with heart failure; I50.32 Chronic diastolic (congestive) heart failure; J84.10 Pulmonary fibrosis, unspecified; J44.9 Chronic obstructive pulmonary disease, unspecified; I44.0 Atrioventricular block, first degree; I25.10 Atherosclerotic heart disease of native coronary artery without angina pectoris; E11.9 Type 2 diabetes mellitus without complications; Z99.81 Dependence on supplemental oxygen; Z87.891 Personal history of nicotine dependence; Z95.1 Presence of aortocoronary bypass graft; Z88.0 Allergy status to penicillin; Z20.828 Contact with and (suspected) exposure to other viral communicable diseases
CPT/HCPCS: 99285; 96360; 96361; 36415; 85025; 85610; 85730; 80053; 81001; 84484; 85379; 83880; 71045; 78580; 71250; A9540; J7030; Q9969